=== PATIENT | male | born 1965 ===

== ENCOUNTER 2016-05-14 20:32 | Observation (INO) | payer OTHER, SELFPAY ==
[2016-05-14 20:33] VITALS: BMI 20.6
--- NOTE | 2016-05-14 21:47 | ED PDOC ---
HPI: Chest Pain Time Seen by Provider: 05/14/16 20:40 Chief Complaint (Nursing): Chest Pain Chief Complaint (Provider): Back/Chest Pain History Per: Patient, Family () History/Exam Limitations: no limitations Onset/Duration Of Symptoms: Days (today) Current Symptoms Are (Timing): Better Severity: Mild (in ED) Quality: Sharp, Tightness Associated Symptoms: Dyspnea, Diaphoresis, Syncope (near), Other (dizziness) Additional Complaint(s): Paul Hernandez is a 50 year old male, with a past medical history inclusive of a dilated aorta and mild aortic aneurysm (diagnosed last year during previous ED evaluation, admitted to hospital), who presents to the ED on 05/14/16, accompanied by his , for the evaluation of feelings of moderate chest pain that he has felt x2 hours, improved since onset. Pain, initially described as sharp but now more of a tightness, had reportedly originated within his back while he had been laying down and is now radiating anteriorly into his chest. Associated diaphoresis and acute shortness of breath also reported, to the point where the patient nearly syncopized; prompting ED visit. Denies fever, chills or leg swelling and states that shortness of breath has since resolved. Patient reports having experienced a similar painful episode while he was at work this morning, described as similar to a muscle spasm. Though pain had eventually resolved on its own, patient does report having experienced persistent feelings of fatigue and some mild shortness of breath that had been mildly alleviated by a hot shower. PMD: [facility] Past Medical History Reviewed: Historical Data, Nursing Documentation, Vital Signs Vital Signs: Last Vital Signs Temp 98.4 F 05/15/16 01:06 Pulse 87 05/15/16 04:45 Resp 14 05/15/16 01:06 BP 133/88 05/15/16 01:06 Pulse Ox 100 05/15/16 04:45 - Medical History PMH: Asthma, Cardiac Aneurysm Denies: HIV, Chronic Kidney Disease - Surgical History Surgical History: Hernia Repair - Family History Family History: States: Hypertension (mother) - Living Arrangements Living Arrangements: With Family - Social History Current smoker - smoking cessation education provided: No Alcohol: None Drugs: Denies - Immunization History Hx Tetanus Toxoid Vaccination: No - Home Medications Home Medications: Ambulatory Orders Medication Instructions Recorded Albuterol HFA [Ventolin HFA 90 1 - 2 puff IH Q4 PRN #1 inhaler 11/20/15 mcg/actuation (8 g)] - Allergies Allergies/Adverse Reactions: Allergies Allergy/AdvReac Type Severity Reaction Status Date / Time No Known Allergies Allergy Verified 05/14/16 20:53 Review of Systems ROS Statement: Except As Marked, All Systems Reviewed And Found Negative Constitutional: Positive for: Sweats, Weakness (fatigue). Negative for: Fever, Chills Cardiovascular: Positive for: Chest Pain, Light Headedness (near syncope). Negative for: Edema Respiratory: Positive for: Shortness of Breath Musculoskeletal: Positive for: Back Pain. Negative for: Leg Pain Physical Exam - Reviewed Nursing Documentation Reviewed: Yes Vital Signs Reviewed: Yes - Physical Exam Appears: Positive for: Non-toxic, Uncomfortable (mild) Head Exam: Positive for: ATRAUMATIC, NORMOCEPHALIC Skin: Positive for: Normal Color, Warm, Dry Eye Exam: Positive for: Normal appearance, PERRL Neck: Positive for: Normal, Painless ROM, Supple Cardiovascular/Chest: Positive for: Regular Rate, Rhythm. Negative for: Edema, Murmur Respiratory: Positive for: Normal Breath Sounds. Negative for: Accessory Muscle Use, Respiratory Distress Gastrointestinal/Abdominal: Positive for: Normal Exam, Soft. Negative for: Tenderness Extremity: Positive for: Normal ROM Neurologic/Psych: Positive for: Alert, Oriented - Laboratory Results Result Diagrams: 05/14/16 22:34 05/14/16 22:34 - ECG ECG: Positive for: Interpreted By Me, Viewed By Me ECG Rhythm: Positive for: Sinus Rhythm. Negative for: ST/T Changes Rate: 87 O2 Sat by Pulse Oximetry: 100 (RA) Pulse Ox Interpretation: Normal Medical Decision Making Medical Decision Makin:14 Initial Impression: chest pain, back pain Previous Records Reviewed: 12/28/15 CT Report FINDINGS: PULMONARY ARTERIES: Unremarkable. No pulmonary embolism. AORTA: There is mild aneurysmal changes of the aortic root measures up to 3.8 centimeter in the largest transverse diameter. The ascending thoracic aorta is slightly ectatic. The aortic arch and descending thoracic aorta are normal in caliber. LUNGS: Scattered nodular opacities bowel seen in the right lung more prominent at the right middle lobe and lower portion of right upper lobe of uncertain etiology may be related to infectious process. Mild central bronchiectasis seen also more prominent on the right lung. PLEURAL SPACES: Unremarkable. No effusion or pneuomothorax. HEART: The heart is upper normal/ mildly enlarged. No evidence of pericardial effusion. LYMPH NODES: No lymphadenopathy. BONES, CHEST WALL: Unremarkable. No fracture or destructive lesion OTHER FINDINGS: Unremarkable. IMPRESSION: Mild aneurysmal dilatation of the aortic root measures up to 3.8 centimeter in the transverse diameter. Mildly ectatic ascending thoracic aorta. The aortic arch and descending thoracic aorta are normal in caliber. No evidence of pulmonary embolus. Scattered small nodular opacities in the lungs more on the right suspicious for infectious process or sequela of recent infection/inflammatory process. Mild central right bronchiectasis. Initial Plan: * EKG * CT Angio Chest Disection Protocol * Labs * Troponin I * Reevaluation EKG shows NSR at 87bpm with no ST elevations. 0015: CT angio chest impression: Within limits of the presently available software, it is favored that the thoracic aorta dimensions are stable. Direct comparison with double oblique imaging is recommended on site, that cannot be performed at the present time. No evidence of thoracic aortic dissection. No evidence to suggest intramural hematoma. No evidence of hemorrhage or other finding to suggest acute aortic pathology. Coronary artery disease. Lung findings as detailed above, followup is advised for nodules noting that at least one nodule does appear new, per Fleischner Society guidelines for follow-up and management of pulmonary nodules: Recommend initial follow-up chest CT at 3, 9 and 24 months. Consider contrast enhanced chest CT, PET scan and/or biopsy as clinically warranted. Clarification re stability is recommended, older studies are not available at this time. Pulmonary arteries as above , no pulmonary embolus within limits of the study. Large amount of air in the esophagus, clinical correlation for esophageal contribution to symptoms. CT A/P impression: No evidence of abdominal aortic aneurysm, patient mesenteric and bilateral renal arteries. Findings of prostatic enlargement, 2.2cm cystic finding adjacent to the left kidney as above noting that this is not a simple cyst, clarification of the nature of this finding is recommended. 0022: Troponin negative. Patient will be admitted to family practice resident on -call for chest pain. pt agreeable to plan. pt will need prostate workup. Scribe Attestation: Documented by Sera Cevallos and Seamus Shin acting as scribes for Pepe Jesus MD. Provider Scribe Attestation: All medical record entries made by the Scribe were at my direction and personally dictated by me. I have reviewed the chart and agree that the record accurately reflects my personal performance of the history, physical exam, medical decision making, and the department course for this patient. I have also personally directed, reviewed, and agree with the discharge instructions and disposition. Disposition - Clinical Impression Clinical Impression: Chest pain - Patient ED Disposition Is Patient to be Admitted: Yes Counseled Patient/Family Regarding: Studies Performed, Diagnosis - Disposition Disposition Time: 00:00 Condition: STABLE
[2016-05-14 22:37] LABS: BASO % 0.4 % (0.0-2.0); EOS # 0.1 K/uL (0.0-0.7); EOS % 0.6 % (0.0-4.0); HEMATOCRIT 41.1 % (35.0-51.0); LYMPH # 1.4 K/uL (1.0-4.3); MEAN CELL VOLUME 83.5 fl (80.0-94.0); MEAN CORPUSCULAR HGB CONC 32.3 g/dL (33.0-37.0); MEAN PLATELET VOLUME 8.7 fl (7.2-11.7); MONO % 8.9 % (0.0-10.0); NEUT # 8.8 K/uL (1.8-7.0); NEUT % 78.1 % (50.0-75.0); RED CELL DISTRIBUTION WIDTH 13.2 % (11.5-14.5); WHITE BLOOD COUNT 11.3 K/uL (4.8-10.8)
[2016-05-14 22:46] LABS: ALB/GLOB RATIO 1.2 (1.0-2.1); ALKALINE PHOSPHATASE 80 U/L (38-126); ALT/SGPT 42 U/L (21-72); AST/SGOT 36 U/L (17-59); BILIRUBIN,TOTAL 0.4 mg/dl (0.2-1.3); BLOOD UREA NITROGEN 14 mg/dl (9-20); CALCIUM 9.2 mg/dL (8.4-10.2); CARBON DIOXIDE 27 mmol/L (22-30); CHLORIDE 100 mmol/L (98-107); GFR AFRICAN-AMERICAN > 60; GLUCOSE,RANDOM 111 mg/dL (75-110); POTASSIUM 3.6 MMOL/L (3.6-5.0); SODIUM 142 mmol/l (132-148); TOTAL PROTEIN 7.4 G/DL (6.3-8.2)
[2016-05-14] MEDS ORDERED: Iodixanol 320 MG/ML 100 ML BOTTLE IV ONE (22:48)
[2016-05-14] MEDS ORDERED: Sodium Chloride 0.9% 50 ML IV ONE (22:49)
--- NOTE | 2016-05-15 00:15 | CT ---
EXAM: CT Angiography Chest Without and With Intravenous Contrast. CLINICAL HISTORY: 50 years old, male; Pain; Other: Chest pain, tightness, SOB; Other: SOB, tightness; Additional info: Chest pain, hsitory of aortic aneurism. RO dissect. Sent e. D. Physician documentation with request TECHNIQUE: Axial computed tomographic angiography images of the chest without and with intravenous contrast using pulmonary embolism protocol. This CT exam was performed using one or more of the following dose reduction techniques: automated exposure control, adjustment of the mA and/or kV according to patient size, and/or use of iterative reconstruction technique. MIP reconstructed images were created and reviewed. Coronal and sagittal reformatted images were created and reviewed. CONTRAST: 90 mL of [id number] administered intravenously. COMPARISON: No relevant prior studies available. FINDINGS:There is comparison to previous CT angiogram of the chest dated December 28, 2015. Pulmonary arteries: Pulmonary arteries.No evidence of an acute pulmonary embolus to the level of the most proximal aspect of the segmental pulmonary arteries. One or more very small segmental or subsegmental pulmonary emboli cannot be excluded. Aorta: There is no evidence of thoracic aortic dissection.A noncontrast examination shows no evidence to suggest acute intramural hematoma. The dimensions of the thoracic aorta at the sinuses of Valsalva are approximately 4.4 cm noting that measured similarly to the previous study this is within measurement error. Please note that double oblique imaging is strongly recommended, however it is not possible to compare both studies in double oblique at the present time related to software constraints. This should be performed on-site. Within limits of what is currently available it is favored that the measurements of the aorta are stable compared to prior of December 2015. The great vessels of the arch are patent, proximal vertebral arteries are patent. Lungs: Lungs. There are are multiple small irregular shaped opacities in the right middle lobe, mild associated bronchiectasis, these are similar to the study of approximately 4 months previous however noting in particular a new or nodule right middle lobe series 6 image 55, 6.2 mm, for which followup is recommended see below. A tubular nodular opacity right middle lobe series 6 image 50 is favored to correspond to previous study series 3 image 55 bronchiectasis and is favored to represent mucous plugging.Additional scattered very small sub-pleural nodules are also seen in the right middle lobe. At the left lung base, there is stable demonstration of a subpleural 9 mm nodule series 6 image 54 in comparison to series 3 image 61 of the previous examination. There is redemonstration of nodularity and bronchiectasis in the lingula series 6 image 17 9, which again is not fully characterized on the present study, possibly postinfectious, but for which followup is recommended if longer term stability cannot be confirmed. Pleural space: There is no pleural effusion. There is no evidence of pneumothorax. Heart: Calcifications in keeping with coronary artery disease are better appreciated on the noncontrast images. No significant pericardial effusion. No evidence of RV dysfunction. Mediastinum: Air in the esophagus suggesting reflux. Thyroid: Thyroid appears without focal lesion. Bones/joints: Bony structures no evidence of acute fractures. No dislocation. Soft tissues: There is trace gynecomastia. Lymph nodes: Small pretracheal precarinal nodes, subcarinal nodes, due to be size criteria for pathologic enlargement. Tubes, lines and devices: Other findings: Noncontrast imaging and contrast enhanced imaging of the chest with multiplanar reconstructions are available. IMPRESSION: Within limits of the presently available software, it is favored that the thoracic aorta dimensions are stable. Direct comparison with double oblique imaging is recommended on site, that cannot be performed at the present time. No evidence of thoracic aortic dissection. No evidence to suggest intramural hematoma. No evidence of hemorrhage or other finding to suggest acute aortic pathology. Coronary artery disease. Lung findings as detailed above, followup is advised for nodules noting that at least one nodule does appear new, per Fleischner Society guidelines for follow-up and management of pulmonary nodules: Recommend initial follow-up chest CT at 3, 9 and 24 months. Consider contrast enhanced chest CT, PET scan and/or biopsy as clinically warranted. Clarification re stability is recommended, older studies are not available at this time. Pulmonary arteries as above , no pulmonary embolus within limits of the study. Large amount of air in the esophagus, clinical correlation for esophageal contribution to symptoms. EXAM: CT Abdomen and Pelvis With Intravenous Contrast. CLINICAL HISTORY: 50 years old, male; Pain; Other: Chest pain, tightness, SOB; Other: SOB, tightness; Additional info: Chest pain, hsitory of aortic aneurism. RO dissect. Sent e. D. Physician documentation with request TECHNIQUE: Axial computed tomography images of the abdomen and pelvis with intravenous contrast. This CT exam was performed using one or more of the following dose reduction techniques: automated exposure control, adjustment of the mA and/or kV according to patient size, and/or use of iterative reconstruction technique. MIP reconstructed images were created and reviewed. Coronal and sagittal reformatted images were created and reviewed. CONTRAST: 90 mL of [id number] administered intravenously. EXAM DATE/TIME: Exam ordered 05/14/2016 9:43 PM COMPARISON: CT - ANGIO CHEST PE PROTOCOL 12/28/2015 9:32:09 AM FINDINGS: Lower thorax: see above ABDOMEN: Liver: Hepatic steatosis. Gallbladder and bile ducts: Gallbladder is collapsed. No calcified stones. No ductal dilation. Pancreas: Unremarkable. No mass. No ductal dilation. Spleen: Unremarkable. No splenomegaly. Adrenals: Small right adrenal nodule, approximately 7 mm, favored to be stable from December 2015. Kidneys and ureters: Adjacent to the left kidney, series 6 image 133, there is a 22 mm finding measuring 29 Hounsfield units, similar in size to the previous CT as seen series 4 image 276 in December 2015. Organ of origin and clinical significance of this finding are not clear on the present study, this is not definitely of renal parenchymal origin. Nephrograms are symmetric, there is no hydronephrosis. No ureteral stones are seen noting that punctate stones or noncalcified stones may not be well seen on CT. Stomach and bowel: No evidence of abdominal wall hernias containing bowel. There are no findings to suggest bowel obstruction. No evidence to suggest acute diverticulitis. In those areas where the wall can be evaluated there is no finding to suggest bowel wall thickening. Appendix: The appendix is well-seen and is normal. PELVIS: Bladder: Bladder is collapsed limiting evaluation. Reproductive: Enlarged prostate, 4.3 cm. Laboratory correlation advised as the next step. ABDOMEN and PELVIS: Intraperitoneal space: No free air. No significant fluid collection. Bones/joints: Bony structures of the abdomen and pelvis. No evidence of acute fractures in the abdomen and pelvis. Mild loss of disc height L5-S1. No dislocation. Soft tissues: See above.Adjacent to the left kidney, series 6 image 133, there is a 22 mm finding measuring 29 Hounsfield units, similar in size to the previous CT as seen series 4 image 276 in December 2015. Organ of origin and clinical significance of this finding are not clear on the present study, this is not definitely of renal parenchymal origin. Vasculature: There is no abdominal aortic aneurysm. The mesenteric vessels appear perfused. 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 The portal venous system is not well evaluated related to phase of contrast-enhancement. Lymph nodes: Upper normal portacaval node. There are small left para-aortic nodes in the pelvis, these do not meet size criteria for pathologic enlargement. Small bilateral external iliac nodes which do not meet size criteria for pathologic enlargement. IMPRESSION: No evidence of abdominal aortic aneurysm, patient mesenteric and bilateral renal arteries. Findings of prostatic enlargement, 2.2cm cystic finding adjacent to the left kidney as above noting that this is not a simple cyst, clarification of the nature of this finding is recommended.
--- NOTE | 2016-05-15 00:34 | CP.PCM.HP ---
History of Present Illness - History of Present Illness History of Present Illness: 50 yo M w/ PMHx of thoracic aorta dilation (4.4cm) presented to ED with episode of chest pain associated with dyspnea while laying down after dinner. Patient states he has had similar pains in the past, though has not had one in a while. Patient does not feel like it is a "reflux" type pain. Patient states the pain was substernal pushing out like pain that is non-reproducible. Patient does not follow with a reconciliation specialist at this time. No other complaints at this time. Patient states no changes recently to diet or exercise. Does not take any medications. Denies palpitations, headache, change of vision, back pain, metallic taste, abdominal pain, nausea, vomiting, diarrhea, constipation, or recent illness. Patient does state dribbling when he urinates that has been an issue for a while. Patient states chest pain and SOB has resolved at this time. PMD: [facility] PMHx: thoracic aorta dilation Meds: None Allergies: NKDA Surgeries: Bilateral inguinal hernia repairs (1992,2011) Family hx: notable for mother with CAD/HTN Social hx: Denies etoh, tobacco, or drug use. 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 Lab remarkable for mild leukocytosis, troponin neg EKG NSR, no acute changes CT angiography obtained to r/o dissection Present on Admission - Present on Admission Any Indicators Present on Admission: No Review of Systems - Review of Systems All systems: reviewed and no additional remarkable complaints except (mentioned in HPI) Past Patient History - Past Social History Alcohol: None Drugs: Denies - CARDIAC Hx Cardiac Disorders: No - PULMONARY Hx Asthma: Yes - NEUROLOGICAL Hx Neurological Disorder: Yes Hx Syncope: Yes - HEENT Hx HEENT Problems: No - RENAL Hx Chronic Kidney Disease: No - ENDOCRINE/METABOLIC Hx Endocrine Disorders: No - HEMATOLOGICAL/ONCOLOGICAL Hx Human Immunodeficiency Virus (HIV): No - INTEGUMENTARY Hx Dermatological Problems: No - MUSCULOSKELETAL/RHEUMATOLOGICAL Hx Falls: No - GASTROINTESTINAL Hx Gastrointestinal Disorders: Yes Hx Colitis: Yes - GENITOURINARY/GYNECOLOGICAL Hx Genitourinary Disorders: No - PSYCHIATRIC Hx Psychophysiologic Disorder: No Hx Substance Use: No - SURGICAL HISTORY Hx Surgeries: Yes Hx Herniorrhaphy: Yes (left side) - ANESTHESIA Hx Anesthesia: Yes Hx Anesthesia Reactions: Yes (low bp) Meds Allergies/Adverse Reactions: Allergies Allergy/AdvReac Type Severity Reaction Status Date / Time No Known Allergies Allergy Verified 05/14/16 20:53 Physical Exam - Constitutional Appears: Well, Non-toxic, No Acute Distress - Head Exam Head Exam: ATRAUMATIC, NORMAL INSPECTION, NORMOCEPHALIC - Eye Exam Eye Exam: EOMI, Normal appearance - Neck Exam Neck exam: Positive for: Normal Inspection - Respiratory Exam Respiratory Exam: Clear to Auscultation Bilateral, NORMAL BREATHING PATTERN. absent: Decreased Breath Sounds, Rhonchi, Wheezes - Cardiovascular Exam Cardiovascular Exam: REGULAR RHYTHM, RRR, +S1, +S2 Additional comments: no tenderness to palpation. - GI/Abdominal Exam GI & Abdominal Exam: Normal Bowel Sounds, Soft. absent: Distended, Firm, Guarding, Tenderness - Extremities Exam Extremities exam: Positive for: normal inspection. Negative for: calf tenderness, pedal edema - Back Exam Back exam: NORMAL INSPECTION - Neurological Exam Neurological exam: Alert, Oriented x3 - Psychiatric Exam Psychiatric exam: Normal Affect, Normal Mood - Skin Skin Exam: Dry, Intact, Normal Color, Warm Results - Vital Signs Recent Vital Signs: Last Vital Signs Temp 98.6 F 05/14/16 20:53 Pulse 87 05/15/16 00:24 Resp 16 05/14/16 20:53 BP 128/75 05/14/16 20:53 Pulse Ox 100 05/15/16 00:24 - Labs Result Diagrams: 05/14/16 22:34 05/14/16 22:34 Assessment & Plan (1) Chest pain Status: Acute (2) Enlarged prostate Status: Acute (3) Aortic dilatation Status: Chronic (4) Cyst of left kidney Status: Chronic (5) Lung nodules Status: Chronic (6) DVT prophylaxis Status: Acute - Assessment and Plan (Free Text) Assessment: 50 yo M w/ PMHx of thoracic aorta dilation (4.4cm) with episode of chest pain associated with dyspnea. CT angio completed, see report for full details. Plan: (1) Chest pain - CT Findings * Consistent with Coronary artery disease. * Pulmonary arteries as above , no pulmonary embolus within limits of the study. * Large amount of air in the esophagus, clinical correlation for esophageal contribution to symptoms. * No evidence of abdominal aortic aneurysm, patient mesenteric and bilateral renal arteries. - Likely due to GERD though will rule out ACS - Trop x 1 neg - EKG unremarkable - Obtain serial troponins - Heart healthy diet - Follow up labs/imaging - Continuous cardiac monitoring (2) Enlarged prostate - CT Findings * Findings of prostatic enlargement 4.3cm - Previously seen by Dr. Palacios approx 5 yrs ago though no intervention - Symptomatic with dribbling - PSA ordered (3) Aortic dilatation - Stable - CT Findings * Within limits of the presently available software, it is favored that the thoracic aorta dimensions are stable. * Direct comparison with double oblique imaging is recommended on site, that cannot be performed at the present time. * No evidence of thoracic aortic dissection. No evidence to suggest intramural hematoma. No evidence of hemorrhage or other finding to suggest acute aortic pathology. - Echo ordered (4) Cyst of left kidney - CT Findings * Adjacent to the left kidney, there is a 22 mm finding measuring 29 Hounsfield units, similar in size to the previous CT in December 2015. * Organ of origin and clinical significance of this finding are not clear on the present study, this is not definitely of renal parenchymal origin. * 2.2cm cystic finding adjacent to the left kidney as above noting that this is not a simple cyst, clarification of the nature of this finding is recommended. (5) Lung nodules - CT Findings * Lung findings as detailed above, followup is advised for nodules noting that at least one nodule does appear new, per Fleischner Society guidelines for follow-up and management of pulmonary nodules: Recommend initial follow-up chest CT at 3, 9 and 24 months. Consider contrast enhanced chest CT, PET scan and/or biopsy as clinically warranted. Clarification re stability is recommended , older studies are not available at this time. (6) DVT prophylaxis - OOB/SCDs prn
[2016-05-15 05:08] VITALS: RESP 20
[2016-05-15 07:42] LABS: BLOOD UREA NITROGEN 14 mg/dl (9-20); CALCIUM 9.3 mg/dL (8.4-10.2); CARBON DIOXIDE 27 mmol/L (22-30); CHLORIDE 103 mmol/L (98-107); CHOLESTEROL 164 mg/dL (0-199); GFR AFRICAN-AMERICAN > 60; GLUCOSE,RANDOM 92 mg/dL (75-110); POTASSIUM 3.8 MMOL/L (3.6-5.0); PROSTATE SPECIFIC ANTIGEN 1.59 ng/ML (0.00-4.0); SODIUM 144 mmol/l (132-148); THYROID STIMULATING HORMONE 6.93 mIU/ML (0.46-4.68)
[2016-05-15 08:03] VITALS: BP 108/75; PULSE 82; TEMP 97.7; O2SAT 99
[2016-05-15 08:35] LABS: BASO % 0.3 % (0.0-2.0); EOS # 0.1 K/uL (0.0-0.7); EOS % 1.3 % (0.0-4.0); HEMATOCRIT 40.6 % (35.0-51.0); LYMPH % 18.5 % (20.0-40.0); MEAN CELL VOLUME 83.3 fl (80.0-94.0); MEAN CORPUSCULAR HEMOGLOBIN 27.1 pg (27.0-31.0); MEAN CORPUSCULAR HGB CONC 32.6 g/dL (33.0-37.0); MEAN PLATELET VOLUME 8.7 fl (7.2-11.7); MONO # 1.1 K/uL (0.0-0.8); MONO % 9.6 % (0.0-10.0); NEUT # 7.7 K/uL (1.8-7.0); NEUT % 70.3 % (50.0-75.0); RED CELL DISTRIBUTION WIDTH 13.5 % (11.5-14.5)
[2016-05-15 10:33] LABS: T4 8.29 ug/dl (5.5-11.0)
--- NOTE | 2016-05-15 11:24 | CARD ---
APPROVED REPORT EXAM: Two-dimensional and M-mode echocardiogram with Doppler and color Doppler. Other Information Quality : GoodRhythm : NSR INDICATION Chest Pain Aortic Enlargement 2D DIMENSIONS IVSd0.81 (0.7-1.1cm)LVDd4.44 (3.9-5.9cm) LVOT Diameter2.06 (1.8-2.4cm)PWd0.91 (0.7-1.1cm) IVSs1.14 (0.8-1.2cm)LVDs2.88 (2.5-4.0cm) FS (%) 35.3 %PWs1.32 (0.8-1.2cm) M-Mode DIMENSIONS Left Atrium (MM)2.03 (2.5-4.0cm)IVSd0.91 (0.7-1.1cm) Aortic Root4.21 (2.2-3.7cm)LVDd4.91 (4.0-5.6cm) Aortic Cusp Exc.2.26 (1.5-2.0cm)PWd0.88 (0.7-1.1cm) IVSs1.79 cmFS (%) 53 % LVDs2.29 (2.0-3.8cm)PWs1.35 cm Mitral Valve MV E Iyirsmiw95.5cm/sMV DECEL [id number] A Quthuala53.5cm/s MV MEK69oiI/A ratio1.3MVA (PHT)2.60cm2 TDI E/Lateral E'0.0E/Medial E'0.0 LEFT VENTRICLE The left ventricle is normal size. There is normal left ventricular wall thickness. The left ventricular function is normal. The left ventricular ejection fraction is within the normal range. The Ejection Fraction is 55-60%. There is normal LV segmental wall motion. The left ventricular diastolic function is normal. No left ventricle thrombus noted on this study. There is no mass noted in the left ventricle. RIGHT VENTRICLE The right ventricle is normal size. There is normal right ventricular wall thickness. The right ventricular systolic function is normal. ATRIA The left atrium size is normal. The right atrium size is normal. The interatrial septum is intact with no evidence for an atrial septal defect. AORTIC VALVE The aortic valve is normal in structure and function. No aortic regurgitation is present. There is no aortic valvular stenosis. There is no aortic valvular vegetation. MITRAL VALVE The mitral valve is normal in structure and function. There is no evidence of mitral valve prolapse. There is no mitral valve stenosis. There is no mitral valve regurgitation noted. TRICUSPID VALVE The tricuspid valve is normal in structure and function. There is no tricuspid valve regurgitation noted. There is no tricuspid valve prolapse or vegetation. There is no tricuspid valve stenosis. PULMONIC VALVE The pulmonary valve is normal in structure and function. There is no pulmonic valvular regurgitation. There is no pulmonic valvular stenosis. GREAT VESSELS The aortic root is mildly enlarged. There is mild aortic root dilatation. 4.21 cm The IVC is normal in size and collapses >50% with inspiration. PERICARDIAL EFFUSION The pericardium appears normal. There is no pleural effusion. <Conclusion> The left ventricle is normal size. The left ventricular function is normal. The left ventricular ejection fraction is within the normal range. The Ejection Fraction is 55-60%. The aortic root is mildly enlarged. There is mild aortic root dilatation. 4.21 cm
--- NOTE | 2016-05-15 11:41 | CARD ---
APPROVED REPORT EKG Measurement Heart [id number] <Conclusion> Normal sinus rhythm Nonspecific ST abnormality Abnormal ECG
--- NOTE | 2016-05-15 17:41 | CP.PCM.DIS ---
Provider - Provider Date of Admission: 05/15/16 00:20 Attending physician: Beverly Eduardo MD Time Spent in preparation of Discharge (in minutes): 30 Diagnosis - Discharge Diagnosis (1) Chest pain Status: Acute (2) Aortic dilatation Status: Chronic Hospital Course - Lab Results Lab Results: Most Recent Lab Values WBC 11.0 K/uL (4.8-10.8) H 05/15/16 07:00 RBC 4.88 Mil/uL (4.40-5.90) 05/15/16 07:00 Hgb 13.2 g/dL (12.0-18.0) 05/15/16 07:00 Hct 40.6 % (35.0-51.0) 05/15/16 07:00 MCV 83.3 fl (80.0-94.0) 05/15/16 07:00 MCH 27.1 pg (27.0-31.0) 05/15/16 07:00 MCHC 32.6 g/dL (33.0-37.0) L 05/15/16 07:00 RDW 13.5 % (11.5-14.5) 05/15/16 07:00 Plt Count 200 K/uL (130-400) 05/15/16 07:00 MPV 8.7 fl (7.2-11.7) 05/15/16 07:00 Neut % (Auto) 70.3 % (50.0-75.0) 05/15/16 07:00 Lymph % (Auto) 18.5 % (20.0-40.0) L 05/15/16 07:00 [place] % (Auto) 9.6 % (0.0-10.0) 05/15/16 07:00 Eos % (Auto) 1.3 % (0.0-4.0) 05/15/16 07:00 Baso % (Auto) 0.3 % (0.0-2.0) 05/15/16 07:00 Neut # 7.7 K/uL (1.8-7.0) H 05/15/16 07:00 Lymph # 2.0 K/uL (1.0-4.3) 05/15/16 07:00 [place] # 1.1 K/uL (0.0-0.8) H 05/15/16 07:00 Eos # 0.1 K/uL (0.0-0.7) 05/15/16 07:00 Baso # 0.0 K/uL (0.0-0.2) 05/15/16 07:00 Sodium 144 mmol/l (132-148) 05/15/16 06:48 Potassium 3.8 MMOL/L (3.6-5.0) 05/15/16 06:48 Chloride 103 mmol/L (98-107) 05/15/16 06:48 Carbon Dioxide 27 mmol/L (22-30) 05/15/16 06:48 Anion Gap 18 (10-20) 05/15/16 06:48 BUN 14 mg/dl (9-20) 05/15/16 06:48 Creatinine 0.9 mg/dL (0.8-1.5) 05/15/16 06:48 Est GFR ( Amer) > 60 05/15/16 06:48 Est GFR (Non-Af Amer) > 60 05/15/16 06:48 Random Glucose 92 mg/dL (75-110) 05/15/16 06:48 Calcium 9.3 mg/dL (8.4-10.2) 05/15/16 06:48 Total Bilirubin 0.4 mg/dl (0.2-1.3) 05/14/16 22:34 AST 36 U/L (17-59) 05/14/16 22:34 ALT 42 U/L (21-72) 05/14/16 22:34 Alkaline Phosphatase 80 U/L (38-126) 05/14/16 22:34 Troponin I < 0.0120 ng/mL (0.00-0.120) 05/15/16 06:30 Total Protein 7.4 G/DL (6.3-8.2) 05/14/16 22:34 Albumin 4.1 g/dL (3.5-5.0) 05/14/16 22:34 Globulin 3.3 gm/dL (2.2-3.9) 05/14/16 22:34 Albumin/Globulin Ratio 1.2 (1.0-2.1) 05/14/16 22:34 Triglycerides 85 mg/DL (0-149) D 05/15/16 06:48 Cholesterol 164 mg/dL (0-199) 05/15/16 06:48 LDL Cholesterol Direct 106 mg/dL (0-129) 05/15/16 06:48 HDL Cholesterol 42 MG/DL (30-70) 05/15/16 06:48 Prostate Specific Ag 1.59 ng/ML (0.00-4.0) 05/15/16 06:48 Thyroxine (T4) 8.29 ug/dl (5.5-11.0) 05/15/16 06:30 Total T3 1.42 nmol/L (1.49-2.60) L 05/15/16 06:30 TSH 3rd Generation 6.93 mIU/ML (0.46-4.68) H 05/15/16 06:48 - Hospital Course Hospital Course: 50 YO M presented to the ED for chest pain. PT was thoroughly worked up. - Troponin x 2 negative. - EKG: No changes from baseline - CT chest angiography :- CT Findings * Within limits of the presently available software, it is favored that the thoracic aorta dimensions are stable. * Direct comparison with double oblique imaging is recommended on site, that cannot be performed at the present time. * No evidence of thoracic aortic dissection. No evidence to suggest intramural hematoma. No evidence of hemorrhage or other finding to suggest acute aortic pathology. - CT of kidney: - CT Findings * Adjacent to the left kidney, there is a 22 mm finding measuring 29 Hounsfield units, similar in size to the previous CT in December 2015. * Organ of origin and clinical significance of this finding are not clear on the present study, this is not definitely of renal parenchymal origin. * 2.2cm cystic finding adjacent to the left kidney as above noting that this is not a simple cyst, clarification of the nature of this finding is recommended. CT Lung: - CT Findings * Lung findings as detailed above, followup is advised for nodules noting that at least one nodule does appear new, per Fleischner Society guidelines for follow-up and management of pulmonary nodules: Recommend initial follow-up chest CT at 3, 9 and 24 months. Consider contrast enhanced chest CT, PET scan and/or biopsy as clinically warranted. Clarification re stability is recommended , older studies are not available at this time. - PT states the chest pain has decreased. Currently does not have any SOB, chest pain, dizziness, N/V/D. Ambulatory Order: Albuterol Discharge Exam - Head Exam Head Exam: ATRAUMATIC, NORMOCEPHALIC - Eye Exam Eye Exam: Normal appearance - Respiratory Exam Respiratory Exam: Clear to PA & Lateral, NORMAL BREATHING PATTERN - Cardiovascular Exam Cardiovascular Exam: REGULAR RHYTHM, +S1, +S2 - GI/Abdominal Exam GI & Abdominal Exam: Normal Bowel Sounds. absent: Tenderness Discharge Plan - Follow Up Plan Condition: STABLE Disposition: HOME/ ROUTINE Additional Instructions: Follow up with Dr. Blanco 05/30/16 @3:20. Return to ER if recurrence or worsening of symptoms with shortness of breath and sweating with chest pain. May continue to follow Dr. Fried if schedule permits. ECHO/ CT Scan follow up as well as Thyroid tests to be followed up as discussed. Ambulatory medication: - Albuterol
== END 2016-05-15 11:22 | disposition home or self-care (01) ==
LOC: H.ER 20:32 → H.ERHOLD 05-15 00:20
PROVIDERS: ADMIT Family Medicine Geriatric Medicine; ATTEND Family Medicine Geriatric Medicine
DX: R07.89 Other chest pain (principal); J45.909 Unspecified asthma, uncomplicated; N40.0 Benign prostatic hyperplasia without lower urinary tract symptoms; N28.1 Cyst of kidney, acquired; R91.8 Other nonspecific abnormal finding of lung field; I77.810 Thoracic aortic ectasia

== ENCOUNTER 2016-06-04 19:15 | Observation (INO) | payer OTHER, SELFPAY ==
[2016-06-04 19:15] VITALS: BMI 20.6
[2016-06-04 21:16] LABS: BASO # 0.1 K/uL (0.0-0.2); BASO % 1.2 % (0.0-2.0); EOS % 0.2 % (0.0-4.0); HEMATOCRIT 39.8 % (35.0-51.0); LYMPH # 1.1 K/uL (1.0-4.3); LYMPH % 8.8 % (20.0-40.0); MEAN CELL VOLUME 83.6 fl (80.0-94.0); MEAN CORPUSCULAR HEMOGLOBIN 27.5 pg (27.0-31.0); MEAN CORPUSCULAR HGB CONC 32.9 g/dL (33.0-37.0); MONO # 0.7 K/uL (0.0-0.8); MONO % 5.7 % (0.0-10.0); NEUT # 10.7 K/uL (1.8-7.0); NEUT % 84.1 % (50.0-75.0); PLATELET COUNT 202 K/uL (130-400); RED CELL DISTRIBUTION WIDTH 13.4 % (11.5-14.5); WHITE BLOOD COUNT 12.7 K/uL (4.8-10.8)
[2016-06-04 21:19] LABS: RBC URINE < 1 /hpf (0-3); URINE BILIRUBIN NEGATIVE (NEGATIVE); URINE BLOOD NEGATIVE (NEGATIVE); URINE COLOR STRAW (YELLOW); URINE GLUCOSE (UA) NEG (Normal); URINE KETONE NEGATIVE (NEGATIVE); URINE LEUKOCYTE ESTERASE NEG Leu/uL (Negative); URINE PROTEIN NEGATIVE (NEGATIVE); URINE UROBILINOGEN 0.2-1.0 mg/dL (0.2-1.0); WBC URINE < 1 /hpf (0-5)
--- NOTE | 2016-06-04 21:34 | ED PDOC ---
HPI: SOB/CHF/COPD Time Seen by Provider: 06/04/16 19:46 Chief Complaint (Nursing): Shortness Of Breath Chief Complaint (Provider): Near Syncope History Per: Patient History/Exam Limitations: no limitations Onset/Duration Of Symptoms: Hrs (x2) Current Symptoms Are (Timing): Better Additional Complaint(s): Paul Hernandez is a 50 year old male, with a past medical history inclusive of previous cardiac aneurysm, vertigo and previous syncope, who presents to the ED on 06/04/16 for evaluation s/p episode of near syncope that he had experienced while driving today; characterized by dizziness, vomiting and acute dyspnea that had lasted for approximately 2 hours. Patient reports feeling better upon initial ED evaluation, stating that he has experienced similar symptom presentation in the past, though he notes the absence of chest pain or nausea during the episode today. Further denies fever, headache or vision changes. PMD: Shavonne Blanco Past Medical History Reviewed: Historical Data, Nursing Documentation, Vital Signs Vital Signs: Last Vital Signs Temp 97.8 F 06/05/16 13:07 Pulse 72 06/05/16 13:07 Resp 20 06/05/16 13:07 BP 128/79 06/05/16 13:07 Pulse Ox 97 06/05/16 13:07 - Medical History PMH: Asthma, Cardiac Aneurysm Denies: HIV, Chronic Kidney Disease Other PMH: vertigo, syncope - Surgical History Surgical History: Hernia Repair (left-sided) - Family History Family History: States: Hypertension (mother) - Immunization History Hx Tetanus Toxoid Vaccination: No - Home Medications Home Medications: Ambulatory Orders Medication Instructions Recorded No Known Home Med 06/05/16 - Allergies Allergies/Adverse Reactions: Allergies Allergy/AdvReac Type Severity Reaction Status Date / Time No Known Allergies Allergy Verified 06/04/16 19:25 Review of Systems ROS Statement: Except As Marked, All Systems Reviewed And Found Negative Constitutional: Negative for: Fever Eyes: Negative for: Vision Change Cardiovascular: Positive for: Light Headedness (near syncope). Negative for: Chest Pain Respiratory: Positive for: Shortness of Breath (since improved) Gastrointestinal: Positive for: Vomiting. Negative for: Nausea Neurological: Positive for: Dizziness (since improved). Negative for: Headache Physical Exam - Reviewed Nursing Documentation Reviewed: Yes Vital Signs Reviewed: Yes - Physical Exam Appears: Positive for: Non-toxic, No Acute Distress Head Exam: Positive for: ATRAUMATIC, NORMOCEPHALIC Skin: Positive for: Normal Color, Warm, Dry Eye Exam: Positive for: Normal appearance, EOMI, PERRL ENT: Positive for: Normal ENT Inspection Neck: Positive for: Normal, Painless ROM, Supple Cardiovascular/Chest: Positive for: Regular Rate, Rhythm. Negative for: Murmur Respiratory: Positive for: Normal Breath Sounds. Negative for: Respiratory Distress Gastrointestinal/Abdominal: Positive for: Normal Exam, Soft. Negative for: Tenderness Back: Positive for: Normal Inspection Extremity: Positive for: Normal ROM (moving all extremities). Negative for: Calf Tenderness, Swelling Neurologic/Psych: Positive for: Alert, aquatics group fitness instructor II-XII (intact), Oriented. Negative for: Motor/Sensory Deficits, Aphasia, Facial Droop - Laboratory Results Result Diagrams: 06/05/16 07:00 06/05/16 04:45 - ECG O2 Sat by Pulse Oximetry: 98 (RA) Pulse Ox Interpretation: Normal - CT Scan/US CT Head w/o contrast Other Rad Studies (CT/US): Read By Radiologist, Radiology Report Reviewed Other Rad Interpretation: see MDM Medical Decision Making Medical Decision Makin:46 Initial Impression: will work up for syncope, vertigo and dyspnea Initial Plan: * EKG * CT Head w/o contrast * CXR * Labs * Troponin I * D-Dimer * PTT * PT * Udip * Meclizine 50mg PO * Reevaluation 22:17 CT Head report reviewed: FINDINGS: Brain: Ventricles are normal in size and configuration. There is no midline shift. There are no intra-axial or extra-axial mass lesions or areas of hemorrhage. There are no abnormal fluid collections. Stafford-white differentiation is maintained. Ventricles: See above. Bones: Cranial vault is intact. Soft tissues: unremarkable Sinuses: There is no acute sinusitis. Ears and mastoids: Middle ears and mastoids are unremarkable. There is debris in the right external auditory canal. Orbits: Orbital contents are unremarkable. IMPRESSION: No acute intracranial abnormality 23:50 Labs reviewed with no clinically significant abnormalities. Patient will be hospitalized within [facility] under the service of Family Practice for near syncope, vertigo and dyspnea. Case has been discussed with Family Practice resident, who has been made aware of patient. Plan has also been discussed with patient, who is in agreement. Clinical Impression: near syncope, vertigo, dyspnea Scribe Attestation: Documented by Sera Cevallos, acting as a scribe for Alicja Otoole MD. Provider Scribe Attestation: All medical record entries made by the Scribe were at my direction and personally dictated by me. I have reviewed the chart and agree that the record accurately reflects my personal performance of the history, physical exam, medical decision making, and the department course for this patient. I have also personally directed, reviewed, and agree with the discharge instructions and disposition. Disposition - Clinical Impression Clinical Impression: Near syncope, Vertigo, Dyspnea - Patient ED Disposition Is Patient to be Admitted: Yes - Disposition Disposition Time: 23:50 Condition: IMPROVED - Pt Status Changed To: Hospital Disposition Of: Observation - POA Present On Arrival: None
[2016-06-04 21:41] LABS: PARTIAL THROMBOPLASTIN TIME 30.5 SECONDS (23.3-32.5)
[2016-06-04 21:52] LABS: ALB/GLOB RATIO 1.2 (1.0-2.1); ALKALINE PHOSPHATASE 76 U/L (38-126); ALT/SGPT 46 U/L (21-72); AST/SGOT 42 U/L (17-59); BILIRUBIN,TOTAL 0.4 mg/dl (0.2-1.3); BLOOD UREA NITROGEN 18 mg/dl (9-20); CALCIUM 9.4 mg/dL (8.4-10.2); CARBON DIOXIDE 27 mmol/L (22-30); CHLORIDE 102 mmol/L (98-107); GFR AFRICAN-AMERICAN > 60; GLUCOSE,RANDOM 102 mg/dL (75-110); SODIUM 142 mmol/l (132-148); TOTAL PROTEIN 7.7 G/DL (6.3-8.2)
[2016-06-04 22:01] LABS: BASOPHIL 1 % (0-2); NEUTROPHIL 81 % (42-75); TOTAL CELLS COUNTED 100
--- NOTE | 2016-06-04 22:17 | CT ---
EXAM: CT Head Without Intravenous Contrast CLINICAL HISTORY: 50 years old, male; Signs and symptoms; Dizziness; Additional info: Vertigo TECHNIQUE: Axial computed tomography images of the head/brain without intravenous contrast. Coronal and sagittal reformatted images were created and reviewed. EXAM DATE/TIME: 06/04/2016 8:42 PM COMPARISON: CT HEAD OR BRAIN W/O CONT 11/04/2011 12:28:57 PM FINDINGS: Brain: Ventricles are normal in size and configuration. There is no midline shift. There are no intra-axial or extra-axial mass lesions or areas of hemorrhage. There are no abnormal fluid collections. Stafford-white differentiation is maintained. Ventricles: See above. Bones: Cranial vault is intact. Soft tissues: unremarkable Sinuses: There is no acute sinusitis. Ears and mastoids: Middle ears and mastoids are unremarkable. There is debris in the right external auditory canal. Orbits: Orbital contents are unremarkable. IMPRESSION: No acute intracranial abnormality
--- NOTE | 2016-06-04 23:47 | CP.PCM.HP ---
History of Present Illness - History of Present Illness History of Present Illness: 50 yo M w/ PMHx of thoracic aorta dilation, dizziness, and UC admitted for near syncope. Occurred at 430PM today while driving, felt dizzy. Took OTC anti- dizziness medication dramamine with no improvement. [place] unsteady and was kneeling down. Denies LOC. Didn't fill meclizine rx yet. a/w SOB and nausea/ vomiting 5x today, food products. Reports unsteady gait. Able to walk 10-20 blocks with no issues. Feels SOB with going up 1 flight of stairs. Previously 3 flights of stairs were not an issue. Will follow with manager dairy Dr. Loredo as new pt on 06/18/16. Denies fever, chills, headache, change of vision, vertigo, chest pain, palpitations, back pain, diarrhea, constipation, or recent illness. Last ECHO 05/15/16 with LVEF 55-60%, aortic root 4.21cm Last CTA with no aortic dissection PMD: [facility] PMHx: thoracic aorta dilation Meds: None Allergies: NKDA Surgeries: b/l inguinal hernia repairs (1992,2011) Family hx: mother-CAD,HTN Social hx: Denies etoh, tobacco, or drug use. 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 3 flights of stairs at home ED Course: VSS CBC, leukocytosis troponin neg CMP WNL EKG CT head no acute changes CXR UA meclizine 25mg PO x1 Present on Admission - Present on Admission Any Indicators Present on Admission: No Review of Systems - Constitutional Constitutional: absent: Chills, Fever - Cardiovascular Cardiovascular: absent: Chest Pain, Dyspnea, Dyspnea on Exertion - Respiratory Respiratory: absent: Dyspnea - Gastrointestinal Gastrointestinal: absent: Abdominal Pain, Diarrhea, Nausea, Vomiting - Genitourinary Genitourinary: absent: Dysuria, Hematuria - Musculoskeletal Musculoskeletal: absent: Back Pain - Neurological Neurological: Dizziness. absent: Headaches Past Patient History - Past Social History Smoking Status: Never Smoked - CARDIAC Hx Cardiac Disorders: No - PULMONARY Hx Asthma: Yes - NEUROLOGICAL Hx Neurological Disorder: Yes Hx Syncope: Yes - HEENT Hx HEENT Problems: No - RENAL Hx Chronic Kidney Disease: No - ENDOCRINE/METABOLIC Hx Endocrine Disorders: No - HEMATOLOGICAL/ONCOLOGICAL Hx Human Immunodeficiency Virus (HIV): No - INTEGUMENTARY Hx Dermatological Problems: No - MUSCULOSKELETAL/RHEUMATOLOGICAL Hx Falls: No - GASTROINTESTINAL Hx Gastrointestinal Disorders: Yes Hx Colitis: Yes - GENITOURINARY/GYNECOLOGICAL Hx Genitourinary Disorders: No - PSYCHIATRIC Hx Psychophysiologic Disorder: No Hx Substance Use: No - SURGICAL HISTORY Hx Surgeries: Yes Hx Herniorrhaphy: Yes (left side) - ANESTHESIA Hx Anesthesia: Yes Hx Anesthesia Reactions: Yes (low bp) Meds Allergies/Adverse Reactions: Allergies Allergy/AdvReac Type Severity Reaction Status Date / Time No Known Allergies Allergy Verified 06/04/16 19:25 Physical Exam - Constitutional Appears: Well, No Acute Distress - Head Exam Head Exam: ATRAUMATIC, NORMAL INSPECTION - Eye Exam Eye Exam: EOMI, PERRL Pupil Exam: PERRL - ENT Exam ENT Exam: Mucous Membranes Moist, Normal Exam - Neck Exam Neck exam: Positive for: Normal Inspection - Respiratory Exam Respiratory Exam: Clear to Auscultation Bilateral - Cardiovascular Exam Cardiovascular Exam: REGULAR RHYTHM - GI/Abdominal Exam GI & Abdominal Exam: Normal Bowel Sounds, Soft - Extremities Exam Extremities exam: Positive for: normal inspection. Negative for: pedal edema - Neurological Exam Neurological exam: Abnormal Gait, Alert, CN II-XII Intact, Oriented x3 - Skin Skin Exam: Dry, Warm Results - Vital Signs Recent Vital Signs: Last Vital Signs Temp 98.5 F 06/04/16 19:25 Pulse 84 06/04/16 19:25 Resp 16 06/04/16 19:25 BP 130/80 06/04/16 19:25 Pulse Ox 98 06/04/16 23:41 - Labs Result Diagrams: 06/04/16 21:05 06/04/16 21:05 Labs: Laboratory Results - last 24 hr 06/04/16 21:05 WBC 12.7 H RBC 4.76 Hgb 13.1 Hct 39.8 MCV 83.6 MCH 27.5 MCHC 32.9 L RDW 13.4 Plt Count 202 MPV 8.0 Neut % (Auto) 84.1 H Lymph % (Auto) 8.8 L [place] % (Auto) 5.7 Eos % (Auto) 0.2 Baso % (Auto) 1.2 Neut # 10.7 H Lymph # 1.1 Ada # 0.7 Eos # 0.0 Baso # 0.1 Neutrophils % (Manual) 81 H Band Neutrophils % 1 Lymphocytes % (Manual) 10 L Monocytes % (Manual) 7 Basophils % (Manual) 1 Platelet Estimate Normal Hypochromasia (manual) Slight Microcytosis (manual) Slight PT 11.1 INR 1.07 APTT 30.5 D-Dimer, Quantitative < 0.19 Sodium 142 Potassium 4.0 Chloride 102 Carbon Dioxide 27 Anion Gap 18 BUN 18 Creatinine 0.8 Est GFR ( Amer) > 60 Est GFR (Non-Af Amer) > 60 Random Glucose 102 Calcium 9.4 Total Bilirubin 0.4 AST 42 ALT 46 Alkaline Phosphatase 76 Troponin I < 0.0120 Total Protein 7.7 Albumin 4.1 Globulin 3.5 Albumin/Globulin Ratio 1.2 Urine Color Straw Urine Clarity Clear Urine pH 7.0 Ur Specific [place] 1.012 Urine Protein Negative Urine Glucose (UA) Neg Urine Ketones Negative Urine Blood Negative Urine Nitrate Negative Urine Bilirubin Negative Urine Urobilinogen 0.2-1.0 Ur Leukocyte Esterase Neg Urine RBC (Auto) < 1 Urine Microscopic WBC < 1 Ur Squamous Epith Cells < 1 Assessment & Plan - Assessment and Plan (Free Text) Assessment: 50 yo M w/ PMHx of thoracic aorta dilation, dizziness, UC admitted for near syncope. near syncope and dizziness -CT head with no acute changes -ECHO no valvular dysfunction, aortic root dilation 4.21cm -EKG unremarkable -carotid duplex -Continuous cardiac monitoring -meclizine -zofran DVT prophylaxis -SCDs prn Decision To Admit - Pt Status Changed To: Hospital Disposition Of: Observation - . Bed Request Type: Telemetry Admitting Physician: Jessika Ng
[2016-06-05 05:02] VITALS: RESP 20
[2016-06-05 07:10] LABS: BLOOD UREA NITROGEN 15 mg/dl (9-20); CALCIUM 9.4 mg/dL (8.4-10.2); CARBON DIOXIDE 29 mmol/L (22-30); CHLORIDE 102 mmol/L (98-107); GFR AFRICAN-AMERICAN > 60; GLUCOSE,RANDOM 99 mg/dL (75-110); POTASSIUM 3.7 MMOL/L (3.6-5.0); SODIUM 145 mmol/l (132-148)
[2016-06-05 07:36] LABS: HEMATOCRIT 40.2 % (35.0-51.0); MEAN CELL VOLUME 83.5 fl (80.0-94.0); MEAN CORPUSCULAR HEMOGLOBIN 27.5 pg (27.0-31.0); MEAN CORPUSCULAR HGB CONC 32.9 g/dL (33.0-37.0); RED CELL DISTRIBUTION WIDTH 13.4 % (11.5-14.5); WHITE BLOOD COUNT 8.6 K/uL (4.8-10.8)
--- NOTE | 2016-06-05 08:52 | RAD ---
HISTORY: Shortness of breath. Upright single-view 21:01. COMPARISON: 11/20/2015. FINDINGS: LUNGS: No active pulmonary disease. PLEURA: No significant pleural effusion identified, no pneumothorax apparent. CARDIOVASCULAR: No radiographic findings to suggest acute or significant cardiovascular disease. OSSEOUS STRUCTURES: No significant abnormalities. VISUALIZED UPPER ABDOMEN: Normal. OTHER FINDINGS: None. IMPRESSION: No active disease. No significant interval change compared to the prior examination(s).
--- NOTE | 2016-06-05 11:36 | CARD ---
APPROVED REPORT EKG Measurement Heart [id number] KS [id number] <Conclusion> Normal sinus rhythm with sinus arrhythmia Normal ECG
[2016-06-05 13:08] VITALS: BP 128/79; PULSE 72; TEMP 97.8
--- NOTE | 2016-06-05 13:27 | US ---
PROCEDURE: Carotid vertebral duplex sonography HISTORY: near syncope, dizziness COMPARISON: 05/30/2015. TECHNIQUE: Grayscale, color Doppler and spectral Doppler assessment of the carotid system bilaterally. This includes common carotid, internal carotid arteries Vertebral artery assessment with respect to direction of flow (antegrade or retrograde) FINDINGS: RIGHT carotid system: Assessment of plaque: Focal plaque formation in the bulb Peak systolic ICA velocity: 86.0 cm/sec End-diastolic velocity: 39.0 cm/sec ICA/CCA ratio: 0.9 Vertebral artery flow: Antegrade LEFT carotid system: Assessment of plaque: Focal plaque formation in the bulb Peak systolic ICA velocity: 77.7 cm/sec End-diastolic velocity: 37.7 cm/sec ICA/CCA ratio: 0.7 Vertebral artery flow: Antegrade IMPRESSION: Right ICA degree of stenosis: Less than 50% Left ICA degree of stenosis: Less than 50% No significant interval change compared to the prior examination(s). Reference Internal Carotid Artery (ICA) Peak Systolic Velocity (PSV) for above: 1. Less than 50% stenosis less than 125 cm/s peak systolic velocity 2. 50-69% stenosis 125-230cm/s peak systolic velocity 3. Greater than 70% but less than near occlusion greater than 230 cm/s peak systolic velocity
--- NOTE | 2016-06-05 14:03 | CP.PCM.DIS ---
Provider - Provider Date of Admission: 06/04/16 23:40 Attending physician: Beverly Eduardo MD Time Spent in preparation of Discharge (in minutes): 30 Diagnosis - Discharge Diagnosis (1) Near syncope Status: Acute Hospital Course - Lab Results Lab Results: Most Recent Lab Values WBC 8.6 K/uL (4.8-10.8) 06/05/16 07:00 RBC 4.81 Mil/uL (4.40-5.90) 06/05/16 07:00 Hgb 13.2 g/dL (12.0-18.0) 06/05/16 07:00 Hct 40.2 % (35.0-51.0) 06/05/16 07:00 MCV 83.5 fl (80.0-94.0) 06/05/16 07:00 MCH 27.5 pg (27.0-31.0) 06/05/16 07:00 MCHC 32.9 g/dL (33.0-37.0) L 06/05/16 07:00 RDW 13.4 % (11.5-14.5) 06/05/16 07:00 Plt Count 190 K/uL (130-400) 06/05/16 07:00 MPV 8.0 fl (7.2-11.7) 06/04/16 21:05 Neut % (Auto) 84.1 % (50.0-75.0) H 06/04/16 21:05 Lymph % (Auto) 8.8 % (20.0-40.0) L 06/04/16 21:05 [place] % (Auto) 5.7 % (0.0-10.0) 06/04/16 21:05 Eos % (Auto) 0.2 % (0.0-4.0) 06/04/16 21:05 Baso % (Auto) 1.2 % (0.0-2.0) 06/04/16 21:05 Neut # 10.7 K/uL (1.8-7.0) H 06/04/16 21:05 Lymph # 1.1 K/uL (1.0-4.3) 06/04/16 21:05 [place] # 0.7 K/uL (0.0-0.8) 06/04/16 21:05 Eos # 0.0 K/uL (0.0-0.7) 06/04/16 21:05 Baso # 0.1 K/uL (0.0-0.2) 06/04/16 21:05 Neutrophils % (Manual) 81 % (42-75) H 06/04/16 21:05 Band Neutrophils % 1 % (0-2) 06/04/16 21:05 Lymphocytes % (Manual) 10 % (20-50) L 06/04/16 21:05 Monocytes % (Manual) 7 % (0-10) 06/04/16 21:05 Basophils % (Manual) 1 % (0-2) 06/04/16 21:05 Platelet Estimate Normal (NORMAL) 06/04/16 21:05 Hypochromasia (manual) Slight 06/04/16 21:05 Microcytosis (manual) Slight 06/04/16 21:05 PT 11.1 SECONDS (9.6-11.2) 06/04/16 21:05 INR 1.07 (0.92-1.08) 06/04/16 21:05 APTT 30.5 SECONDS (23.3-32.5) 06/04/16 21:05 D-Dimer, Quantitative < 0.19 mg/L FEU (0-0.50) 06/04/16 21:05 Sodium 145 mmol/l (132-148) 06/05/16 04:45 Potassium 3.7 MMOL/L (3.6-5.0) 06/05/16 04:45 Chloride 102 mmol/L (98-107) 06/05/16 04:45 Carbon Dioxide 29 mmol/L (22-30) 06/05/16 04:45 Anion Gap 17 (10-20) 06/05/16 04:45 BUN 15 mg/dl (9-20) 06/05/16 04:45 Creatinine 0.8 mg/dL (0.8-1.5) 06/05/16 04:45 Est GFR ( Amer) > 60 06/05/16 04:45 Est GFR (Non-Af Amer) > 60 06/05/16 04:45 Random Glucose 99 mg/dL (75-110) 06/05/16 04:45 Calcium 9.4 mg/dL (8.4-10.2) 06/05/16 04:45 Total Bilirubin 0.4 mg/dl (0.2-1.3) 06/04/16 21:05 AST 42 U/L (17-59) 06/04/16 21:05 ALT 46 U/L (21-72) 06/04/16 21:05 Alkaline Phosphatase 76 U/L (38-126) 06/04/16 21:05 Troponin I < 0.0120 ng/mL (0.00-0.120) 06/04/16 21:05 Total Protein 7.7 G/DL (6.3-8.2) 06/04/16 21:05 Albumin 4.1 g/dL (3.5-5.0) 06/04/16 21:05 Globulin 3.5 gm/dL (2.2-3.9) 06/04/16 21:05 Albumin/Globulin Ratio 1.2 (1.0-2.1) 06/04/16 21:05 Urine Color Straw (YELLOW) 06/04/16 21:05 Urine Clarity Clear (Clear) 06/04/16 21:05 Urine pH 7.0 (5.0-8.0) 06/04/16 21:05 Ur Specific [place] 1.012 (1.003-1.030) 06/04/16 21:05 Urine Protein Negative mg/dL (NEGATIVE) 06/04/16 21:05 Urine Glucose (UA) Neg mg/dL (Normal) 06/04/16 21:05 Urine Ketones Negative mg/dL (NEGATIVE) 06/04/16 21:05 Urine Blood Negative (NEGATIVE) 06/04/16 21:05 Urine Nitrate Negative (NEGATIVE) 06/04/16 21:05 Urine Bilirubin Negative (NEGATIVE) 06/04/16 21:05 Urine Urobilinogen 0.2-1.0 mg/dL (0.2-1.0) 06/04/16 21:05 Ur Leukocyte Esterase Neg Som/uL (Negative) 06/04/16 21:05 Urine RBC (Auto) < 1 /hpf (0-3) 06/04/16 21:05 Urine Microscopic WBC < 1 /hpf (0-5) 06/04/16 21:05 Ur Squamous Epith Cells < 1 /hpf (0-5) 06/04/16 21:05 - Hospital Course Hospital Course: The patient is a 50 y/o man w/ PMHx of thoracic aorta dilation, dizziness, and ulcerative colitis admitted for near syncope. The patient was admitted for similar complaint about 3 weeks ago; however, this presentation included headache that started 1 week prior to admission. The patient was seen in ED and given meclizine for the dizziness which gave no relief. The patient had EKG , CXR, and head CT which were all WNL. Labs including CBC, CMP, coags, troponin , and UA were also WNL. The patient had a carotid and vertebral artery ultrasound study which was also WNL. The patient will not be discharged with further medication for dizziness. The patient is to follow up with wooden shade hardware installer , Dr. Loredo on 06/11/2016 @ 11:15 AM, where the patient is to discuss advanced imaging for thoracic aortic root dilation. The patient is to follow up with GI regarding UC and has scheduled colonoscopy on 08/06/2016. The patient is to follow up with [facility] for health maintenance, where the patient may discuss possible need for EEG as out patient or other work up regarding dizziness. The patient has been seen, examined, and deemed medically fit with no contraindication for discharge home. Discharge Exam - Head Exam Head Exam: ATRAUMATIC, NORMAL INSPECTION - Eye Exam Eye Exam: EOMI Pupil Exam: PERRL - ENT Exam ENT Exam: Mucous Membranes Moist - Respiratory Exam Respiratory Exam: Clear to PA & Lateral. absent: Accessory Muscle Use, Chest Wall Tenderness, Decreased Breath Sounds, Prolonged Expiratory Phase, Rales, Rhonchi, Wheezes, Respiratory Distress, Stridor - Cardiovascular Exam Cardiovascular Exam: REGULAR RHYTHM. absent: Tachycardia - GI/Abdominal Exam GI & Abdominal Exam: Normal Bowel Sounds, Soft. absent: Distended, Tenderness - Extremities Exam Extremities exam: normal inspection - Neurological Exam Neurological exam: Alert, CN II-XII Intact, Normal Gait, Oriented x3 - Skin Skin Exam: Dry, Intact, Normal Color, Warm Discharge Plan - Follow Up Plan Condition: IMPROVED Disposition: HOME/ ROUTINE Instructions: Syncope (DC), Dyspnea (GEN) Referrals: [facility] [Outside] Shavonne Blanco MD [Family Provider] - Ariel Loredo MD [Staff Provider] -
[2016-06-08 21:25] VITALS: O2SAT 98
== END 2016-06-05 15:14 | disposition home or self-care (01) ==
LOC: H.ER 19:15 → H.ERHOLD 23:40 → H.TEL 06-05 02:16
PROVIDERS: ADMIT Family Medicine Geriatric Medicine; ATTEND Family Medicine Geriatric Medicine
DX: R55 Syncope and collapse (principal); J45.909 Unspecified asthma, uncomplicated; K51.90 Ulcerative colitis, unspecified, without complications; J44.9 Chronic obstructive pulmonary disease, unspecified

== ENCOUNTER 2016-06-12 12:28 | Emergency (ER) | payer OTHER, SELFPAY ==
[2016-06-12 12:40] VITALS: BP 136/95; PULSE 89; RESP 16; TEMP 98.4; O2SAT 100; BMI 21.9
[2016-06-12] MEDS ORDERED: Iohexol 240 (50 ml) PO ONE (13:00)
[2016-06-12] MEDS ORDERED: Sodium Chloride 0.9% 1,000 ML IV STA (13:02)
--- NOTE | 2016-06-12 13:05 | ED PDOC ---
HPI: Abdomen Time Seen by Provider: 06/12/16 13:03 Chief Complaint (Nursing): Abdominal Pain Chief Complaint (Provider): ABDOMINAL PAIN History Per: Patient (50 Y/O MALE HERE WITH LEFT LOWER ABDOMINAL PAIN INTERMITTENTLY RADIATING TO BACK X 1 WEEK. PATIENT DENIES ANY DIARRHEA/ DYSURIA. HAS H/O ULCERATIVE COLITIS AND IS PENDING COLONOSCOPY WITH DR. MORILLO. IS NOT CURRENTLY ON MEDICATIONS HE RECENTLY WAS SEEN IN CLINIC. PATIENT ALSO SUFFERS FROM SYNCOPAL EPISODES AND HAS HAD DROP IN BLOOD PRESSURE/ DIZZINESS ASSOCIATED WITH LOWER ABDOMINAL PAIN.) Past Medical History Reviewed: Historical Data, Nursing Documentation, Vital Signs Vital Signs: Last Vital Signs Temp 98.4 F 06/12/16 12:38 Pulse 89 06/12/16 12:38 Resp 16 06/12/16 12:38 BP 136/95 H 06/12/16 12:38 Pulse Ox 100 06/12/16 17:00 - Medical History PMH: Asthma, Cardiac Aneurysm Denies: HIV, Chronic Kidney Disease - Surgical History Surgical History: Hernia Repair - Family History Family History: States: Unknown Family Hx, Hypertension (mother) - Immunization History Hx Tetanus Toxoid Vaccination: No - Home Medications Home Medications: Ambulatory Orders Medication Instructions Recorded Docusate [Colace] 100 mg PO BID #20 cap 06/12/16 Phosphate Enema [Fleet Enema 135 135 ml RC ONCE PRN #1 nma 06/12/16 Ml] - Allergies Allergies/Adverse Reactions: Allergies Allergy/AdvReac Type Severity Reaction Status Date / Time No Known Allergies Allergy Verified 06/12/16 12:38 Review of Systems ROS Statement: Except As Marked, All Systems Reviewed And Found Negative Physical Exam - Reviewed Nursing Documentation Reviewed: Yes Vital Signs Reviewed: Yes - Physical Exam Appears: Positive for: Well, Non-toxic, No Acute Distress Head Exam: Positive for: ATRAUMATIC, NORMAL INSPECTION, NORMOCEPHALIC Skin: Positive for: Normal Color, Warm, DRY Eye Exam: Positive for: EOMI, Normal appearance, PERRL ENT: Positive for: Normal ENT Inspection Neck: Positive for: Normal, Painless ROM Cardiovascular/Chest: Positive for: Regular Rate, Rhythm Respiratory: Positive for: CNT, Normal Breath Sounds Gastrointestinal/Abdominal: Positive for: Normal Exam, Bowel Sounds, Soft, Tenderness (LEFT LOWER QUADRANT TENDERNESS) Male Genital Exam: Negative for: normal genitalia, inguinal tenderness, scrotum tenderness (R), scrotum tenderness (L) Back: Positive for: Normal Inspection Extremity: Positive for: Normal ROM Neurologic/Psych: Positive for: Alert, Oriented - Laboratory Results Result Diagrams: 06/12/16 13:23 06/12/16 13:23 - ECG O2 Sat by Pulse Oximetry: 100 - Progress ED Course And Treament: CT ABD/PELVIS: CONSTIPATION. Disposition - Clinical Impression Clinical Impression: Constipation - Patient ED Disposition Is Patient to be Admitted: No - Disposition Disposition: Routine/Home Disposition Time: 16:59 Condition: FAIR Prescriptions: Docusate [Colace] 100 mg PO BID #20 cap Phosphate Enema [Fleet Enema 135 Ml] 135 ml RC ONCE PRN #1 nma PRN Reason: Constipation Instructions: Constipation (GEN), High Fiber Diet (ED) Forms: [facility] ED School/Work Excuse
[2016-06-12 13:28] LABS: BASO # 0.1 K/uL (0.0-0.2); BASO % 0.5 % (0.0-2.0); EOS % 0.3 % (0.0-4.0); LYMPH # 1.3 K/uL (1.0-4.3); MEAN CORPUSCULAR HEMOGLOBIN 27.9 pg (27.0-31.0); MEAN CORPUSCULAR HGB CONC 34.1 g/dL (33.0-37.0); MEAN PLATELET VOLUME 8.3 fl (7.2-11.7); MONO # 0.7 K/uL (0.0-0.8); MONO % 7.1 % (0.0-10.0); NEUT # 7.4 K/uL (1.8-7.0); NEUT % 78.1 % (50.0-75.0); NRBC % 0.1 % (0.0-0.0); RED CELL DISTRIBUTION WIDTH 13.3 % (11.5-14.5); WHITE BLOOD COUNT 9.4 K/uL (4.8-10.8)
[2016-06-12 13:35] LABS: RBC URINE 3 /hpf (0-3); URINE BILIRUBIN NEGATIVE (NEGATIVE); URINE BLOOD NEGATIVE (NEGATIVE); URINE COLOR LIGHT YELLOW (YELLOW); URINE GLUCOSE (UA) NEGATIVE (Normal); URINE KETONE NEGATIVE (NEGATIVE); URINE LEUKOCYTE ESTERASE NEGATIVE Leu/uL (Negative); URINE PROTEIN NEGATIVE (NEGATIVE); URINE UROBILINOGEN 0.2 mg/dL (0.2-1.0); WBC URINE 2 /hpf (0-5)
[2016-06-12 13:40] LABS: ALB/GLOB RATIO 1.1 (1.0-2.1); ALKALINE PHOSPHATASE 86 U/L (38-126); ALT/SGPT 46 U/L (21-72); AST/SGOT 39 U/L (17-59); BILIRUBIN,TOTAL 0.8 mg/dl (0.2-1.3); BLOOD UREA NITROGEN 17 mg/dl (9-20); CALCIUM 9.8 mg/dL (8.4-10.2); CARBON DIOXIDE 26 mmol/L (22-30); CHLORIDE 104 mmol/L (98-107); GFR AFRICAN-AMERICAN > 60; GLUCOSE,RANDOM 90 mg/dL (75-110); LIPASE 63 U/L (23-300); POTASSIUM 3.8 MMOL/L (3.6-5.0); SODIUM 145 mmol/l (132-148); TOTAL PROTEIN 8.1 G/DL (6.3-8.2)
[2016-06-12] MEDS ORDERED: Iohexol 300 100 ML IJ ONE (14:42)
[2016-06-12] MEDS ORDERED: Sodium Chloride 0.9% 50 ML IV ONE (14:43)
--- NOTE | 2016-06-12 16:01 | CT ---
PROCEDURE: CT Abdomen and Pelvis with contrast HISTORY: Abdominal pain, left lower quadrant pain. Relevant medical history: ULCERATIVE COLITIS COMPARISON: 02/28/2014. CT abdomen and pelvis. TECHNIQUE: Contrast dose: 95 cc Omnipaque 300 Radiation dose: Total exam DLP = 583.34. MGy-cm. This CT exam was performed using one or more of the following dose reduction techniques: Automated exposure control, adjustment of the mA and/or kV according to patient size, and/or use of iterative reconstruction technique. FINDINGS: LOWER THORAX: Incompletely visualize bronchiectasis right middle lobe. Otherwise no significant findings LIVER: Unremarkable. No gross lesion or ductal dilatation. GALLBLADDER AND BILE DUCTS: Unremarkable. PANCREAS: Unremarkable. No gross lesion or ductal dilatation. SPLEEN: Unremarkable. ADRENALS: Unremarkable. No mass. KIDNEYS AND URETERS: Unremarkable. No hydronephrosis. No solid mass. VASCULATURE: Unremarkable. No aortic aneurysm. BOWEL: Unremarkable. No obstruction. No gross mural thickening. Constipation without fecal impaction or obstruction. APPENDIX: Normal appendix. PERITONEUM: Unremarkable. No free fluid. No free air. LYMPH NODES: Unremarkable. No enlarged lymph nodes. BLADDER: Unremarkable. REPRODUCTIVE: Unremarkable. BONES: No acute fracture. OTHER FINDINGS: None. IMPRESSION: No acute findings related to/accounting for the clinical presentation.
== END 2016-06-12 17:42 | disposition home or self-care (01) ==
LOC: H.ER 12:28
DX: K51.90 Ulcerative colitis, unspecified, without complications (principal)

== ENCOUNTER 2016-08-06 09:54 | Day surgery (SDC) | payer OTHER ==
[2016-08-06] MEDS ORDERED: Lactated Ringer's 500 ML IV ONE (10:16)
[2016-08-06 10:26] VITALS: TEMP 96.9; O2SAT 100
[2016-08-06 12:02] VITALS: BP 110/66; PULSE 70; RESP 18
== END 2016-08-06 12:12 | disposition home or self-care (01) ==
LOC: H.ENDO 09:54
PROVIDERS: ATTEND Internal Medicine Gastroenterology
DX: R10.13 Epigastric pain (principal); K29.70 Gastritis, unspecified, without bleeding; K31.7 Polyp of stomach and duodenum

== ENCOUNTER 2016-08-26 13:55 | Observation (INO) | payer SELFPAY ==
[2016-08-26 13:56] VITALS: BMI 21.9
[2016-08-26 15:05] LABS: BASO # 0.1 K/uL (0.0-0.2); BASO % 0.8 % (0.0-2.0); EOS % 0.3 % (0.0-4.0); HEMOGLOBIN 14.1 g/dL (12.0-18.0); LYMPH # 1.1 K/uL (1.0-4.3); LYMPH % 10.3 % (20.0-40.0); MEAN CELL VOLUME 83.2 fl (80.0-94.0); MEAN CORPUSCULAR HEMOGLOBIN 27.6 pg (27.0-31.0); MEAN CORPUSCULAR HGB CONC 33.1 g/dL (33.0-37.0); MEAN PLATELET VOLUME 8.4 fl (7.2-11.7); MONO # 0.7 K/uL (0.0-0.8); MONO % 6.9 % (0.0-10.0); NEUT # 8.6 K/uL (1.8-7.0); NEUT % 81.7 % (50.0-75.0); NRBC % 0.1 % (0.0-0.0); RBC 5.11 Mil/uL (4.40-5.90); RED CELL DISTRIBUTION WIDTH 13.1 % (11.5-14.5); WHITE BLOOD COUNT 10.5 K/uL (4.8-10.8)
[2016-08-26 15:08] LABS: SQUAMOUS EPITHIAL < 1 /hpf (0-5); URINE BILIRUBIN NEGATIVE (NEGATIVE); URINE BLOOD NEGATIVE (NEGATIVE); URINE CLARITY CLEAR (Clear); URINE COLOR YELLOW (YELLOW); URINE GLUCOSE (UA) NEG (Normal); URINE LEUKOCYTE ESTERASE NEG Leu/uL (Negative); URINE NITRATE NEGATIVE (NEGATIVE); URINE PROTEIN NEGATIVE (NEGATIVE); URINE UROBILINOGEN 0.2-1.0 mg/dL (0.2-1.0)
[2016-08-26 15:21] LABS: ALB/GLOB RATIO 1.2 (1.0-2.1); ALBUMIN 4.6 g/dL (3.5-5.0); ALT/SGPT 56 U/L (21-72); AST/SGOT 46 U/L (17-59); BLOOD UREA NITROGEN 16 mg/dl (9-20); CALCIUM 9.6 mg/dL (8.4-10.2); GFR AFRICAN-AMERICAN > 60; GFR NON-AFRICAN AMERICAN > 60
--- NOTE | 2016-08-26 15:21 | ED PDOC ---
HPI: SOB/CHF/COPD Time Seen by Provider: 08/26/16 14:34 Chief Complaint (Nursing): Shortness Of Breath Chief Complaint (Provider): Shortness Of Breath History Per: Patient History/Exam Limitations: no limitations Onset/Duration Of Symptoms: Days (x 3 days) Current Symptoms Are (Timing): Still Present Additional Complaint(s): Paul Grande is a 50-year-old male with a history of aortic root dilatation who presents to the emergency department complaining of nausea, dizziness, near syncope, vomiting, lightheadedness, mild headache, slight chest pain, and shortness of breath, occurring intermittently x 3 days. Patient reports that laying down improves his dizziness, and admits to taking bonide for relief of symptoms. Patient reports experiencing similar symptoms in the past, and states he had an MRI of the brain in June which was unremarkable. He is pending a tilt table test and Holter test. Patient denies fever, abdominal pain, and diarrhea. PMD: Dr. Farah Past Medical History Reviewed: Historical Data, Nursing Documentation, Vital Signs Vital Signs: Last Vital Signs Temp 97.6 F 08/27/16 08:00 Pulse 55 L 08/27/16 08:00 Resp 18 08/27/16 08:00 BP 115/79 08/27/16 08:00 Pulse Ox 99 08/27/16 08:00 - Medical History PMH: Asthma, Bronchitis, Cardiac Aneurysm Denies: HIV, Chronic Kidney Disease - Surgical History Surgical History: Hernia Repair - Family History Family History: States: Unknown Family Hx, Hypertension (mother) - Social History Current smoker - smoking cessation education provided: No Alcohol: None Drugs: Denies - Immunization History Hx Tetanus Toxoid Vaccination: No - Home Medications Home Medications: Ambulatory Orders Medication Instructions Recorded No Known Home Med 08/06/16 - Allergies Allergies/Adverse Reactions: Allergies Allergy/AdvReac Type Severity Reaction Status Date / Time No Known Allergies Allergy Verified 06/12/16 12:38 Curb-65 Severity Score - CURB-65 Severity Score Confusion: No Bun >19mg/dl (>7mmol/L): No Respiratory Rate greater than/equal to 30: No Systolic BP <90 or Diastolic BP less than/equal 60mmHg: No Age >64: No Curb-65 Score: 0 Percentage 30-day mortality: 0.6% Wells Criteria for PE - Wells Criteria for Pulmonary Embolism Clinical Signs and Symptoms of DVT: No P.E is #1 Diagnosis, or Equally Likely: No Heart Rate >100: No Immobilization at least 3 days;Surgery previous 4 weeks: No Previous, objectively diagnosed PE or DVT: No Hemoptysis: No Malignancy w/treatment within 6 months, or palliative: No Total Score: 0 Review of Systems ROS Statement: Except As Marked, All Systems Reviewed And Found Negative Constitutional: Negative for: Fever Cardiovascular: Positive for: Chest Pain (Slight), Light Headedness Respiratory: Positive for: Shortness of Breath Gastrointestinal: Positive for: Nausea, Vomiting. Negative for: Abdominal Pain , Diarrhea Neurological: Positive for: Headache, Dizziness, Other (Near syncope) Physical Exam - Reviewed Nursing Documentation Reviewed: Yes Vital Signs Reviewed: Yes - Physical Exam Appears: Positive for: Non-toxic, No Acute Distress Head Exam: Positive for: ATRAUMATIC, NORMAL INSPECTION, NORMOCEPHALIC Skin: Positive for: Normal Color, Warm, Dry Neck: Positive for: Normal, Painless ROM, Supple Cardiovascular/Chest: Positive for: Regular Rate, Rhythm. Negative for: Murmur Respiratory: Positive for: Normal Breath Sounds. Negative for: Accessory Muscle Use, Respiratory Distress Neurologic/Psych: Positive for: Alert, Oriented - Laboratory Results Result Diagrams: 08/26/16 14:59 08/26/16 14:59 - ECG Interpretation Of ECG: NSR @ 76, no ST-T changes. O2 Sat by Pulse Oximetry: 98 (RA) Pulse Ox Interpretation: Normal Medical Decision Making Medical Decision Making: Time: 14:54 Initial impression: Dizziness Initial plan: --EKG --CMP --CBC --Troponin I --ED Urine dipstick --PTT --Prothrombin Time --CXR --AccuCheck --Urinalysis --Reevaluation Time: 15:53 Chest X-ray FINDINGS: LUNGS: Mild biapical pleural thickening and adjacent parenchymal scarring. PLEURA: No significant pleural effusion identified. No pneumothorax apparent. CARDIOVASCULAR: Normal. OSSEOUS STRUCTURES: No significant abnormalities. . Probable mild pectus excavatum deformity. VISUALIZED UPPER ABDOMEN: Normal. OTHER FINDINGS: Mild biapical pleural thickening and parenchymal IMPRESSION: Mild biapical pleural thickening and parenchymal scarring Time: Scribe Attestation: Documented by Keira Ibarra, acting as a scribe for Alicja Otoole MD. Provider Scribe Attestation: All medical record entries made by the Scribe were at my direction and personally dictated by me. I have reviewed the chart and agree that the record accurately reflects my personal performance of the history, physical exam, medical decision making, and the department course for this patient. I have also personally directed, reviewed, and agree with the discharge instructions and disposition. Disposition - Clinical Impression Clinical Impression: Near syncope, Chest pain - Patient ED Disposition Is Patient to be Admitted: Yes - Disposition Disposition Time: 18:07 Condition: STABLE - Pt Status Changed To: Hospital Disposition Of: Observation - POA Present On Arrival: None
[2016-08-26 15:27] LABS: INR 1.1 (0.9-1.2); PROTHROMBIN TIME 12.3 Seconds (9.8-13.1)
[2016-08-26 15:28] LABS: PARTIAL THROMBOPLASTIN TIME 33.1 Seconds (25.6-37.1)
[2016-08-26] MEDS ORDERED: Sodium Chloride 0.9% 1,000 ML IV STA (15:44)
--- NOTE | 2016-08-26 15:55 | RAD ---
HISTORY: Dizziness COMPARISON: Comparison chest 06/04/2016 comparison also made with CTA of the chest dated 07/20/2015 TECHNIQUE: Chest PA and lateral FINDINGS: LUNGS: Mild biapical pleural thickening and adjacent parenchymal scarring. PLEURA: No significant pleural effusion identified. No pneumothorax apparent. CARDIOVASCULAR: Normal. OSSEOUS STRUCTURES: No significant abnormalities. . Probable mild pectus excavatum deformity. VISUALIZED UPPER ABDOMEN: Normal. OTHER FINDINGS: Mild biapical pleural thickening and parenchymal IMPRESSION: Mild biapical pleural thickening and parenchymal scarring
--- NOTE | 2016-08-26 19:12 | CP.PCM.HP ---
History of Present Illness - History of Present Illness History of Present Illness: 50 yo M w PMHx of 4.4cm ascending aortic root dilatation and a >1 year h/o nausea, dizziness, and near syncope is admitted for chest pain. As presently seen, his complaints of pain, nausea, and dizziness have resolved. When present , he describes the pain as sharp, 4/10, sharp, non radiating, and often associated episodes of nausea, vomiting, dizziness, and near syncope. At the current moment, he denies any LOC, headstrike, trauma, or jaw/neck/arm pain. During the previous weekend while vacationing at the [place], pt began experiencing nausea and dizziness on Friday w episodes of nonbloody vomiting that night. His chest discomfort began Friday, at which point the family decided to drive back home. During the day today his discomfort turned to pain, which is what prompted the ER visit. Additionally, pt is scheduled for tilt table test and holter monitoring in one week. Otherwise, he denies any fevers/ chills, abdominal pain, hematuria, dysuria, or myalgias. PMD: Francis PMHx: 4.4cm ascending aortic root dilatation PSHx: b/l inguinal hernia repairs (1992,2011) NKDA Home Meds: None FHx: Mother: CAD, HTN SHx: Denies etoh, tobacco, or drug use. 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 ED Course: --CMP --CBC --EKG --Troponin I --PTT --Prothrombin Time --CXR --AccuCheck --Urinalysis --ED Urine dipstick Present on Admission - Present on Admission Any Indicators Present on Admission: No History of DVT/PE: No History of Uncontrolled Diabetes: No Urinary Catheter: No Decubitus Ulcer Present: No Review of Systems - Review of Systems All systems: reviewed and no additional remarkable complaints except (see HPI) Past Patient History - Past Medical History & Family History Past Medical History?: Yes - Past Social History Alcohol: None Drugs: Denies - CARDIAC Hx Cardiac Disorders: Yes Other/Comment: AORTIC ROOT DILATATION - PULMONARY Hx Asthma: Yes Hx Bronchitis: Yes - NEUROLOGICAL Hx Neurological Disorder: No - HEENT Hx HEENT Problems: No - RENAL Hx Chronic Kidney Disease: No - ENDOCRINE/METABOLIC Hx Endocrine Disorders: No - HEMATOLOGICAL/ONCOLOGICAL Hx Human Immunodeficiency Virus (HIV): No - INTEGUMENTARY Hx Dermatological Problems: No - MUSCULOSKELETAL/RHEUMATOLOGICAL Hx Musculoskeletal Disorders: No - GASTROINTESTINAL Hx Gastrointestinal Disorders: Yes Hx Colitis: Yes - GENITOURINARY/GYNECOLOGICAL Hx Genitourinary Disorders: No - PSYCHIATRIC Hx Emotional Abuse: No Hx Physical Abuse: No Hx Substance Use: No - SURGICAL HISTORY Hx Surgeries: Yes Hx Herniorrhaphy: Yes (ROSIE. INGUINAL) - ANESTHESIA Hx Anesthesia: Yes Hx Anesthesia Reactions: No Hx Malignant Hyperthermia: No Meds Allergies/Adverse Reactions: Allergies Allergy/AdvReac Type Severity Reaction Status Date / Time No Known Allergies Allergy Verified 06/12/16 12:38 Physical Exam - Constitutional Appears: Non-toxic, No Acute Distress - Head Exam Head Exam: ATRAUMATIC, NORMOCEPHALIC - Eye Exam Eye Exam: EOMI Pupil Exam: PERRL - ENT Exam ENT Exam: Mucous Membranes Moist - Neck Exam Neck exam: Positive for: Full Rom - Respiratory Exam Respiratory Exam: Clear to Auscultation Bilateral, NORMAL BREATHING PATTERN - Cardiovascular Exam Cardiovascular Exam: REGULAR RHYTHM - GI/Abdominal Exam GI & Abdominal Exam: Normal Bowel Sounds, Soft. absent: Tenderness - Extremities Exam Extremities exam: Negative for: calf tenderness, pedal edema - Back Exam Back exam: absent: CVA tenderness (L), CVA tenderness (R) - Neurological Exam Neurological exam: Alert, CN II-XII Intact, Oriented x3 - Psychiatric Exam Psychiatric exam: Normal Affect, Normal Mood - Skin Skin Exam: Dry, Normal Color, Warm Results - Vital Signs Recent Vital Signs: Last Vital Signs Temp 97 F L 08/26/16 14:04 Pulse 82 08/26/16 18:28 Resp 19 08/26/16 18:28 BP 130/90 08/26/16 18:28 Pulse Ox 98 08/26/16 18:28 - Labs Result Diagrams: 08/26/16 14:59 08/26/16 14:59 Assessment & Plan - Assessment and Plan (Free Text) Plan: 50 yo M w PMHx of 4.4cm ascending aortic root dilatation and a >1 year h/o nausea, dizziness, and near syncope is admitted for chest pain 1) Chest Pain r/o ACS w associated nausea and dizziness -Patient w >1 year h/o nausea, dizziness, near syncope, and mild chest tightness -Troponin Neg x1 -EKG wnl -CT Angio (Apr): No evidence of thoracic aortic dissection. ---Noncontrast exam shows no evidence to suggest acute intramural hematoma. The dimensions of the thoracic aorta at the sinuses of Valsalva are appx 4.4cm noting that measured similarly to the previous study this is within measurement error. ---At least one Pulmonary nodule appears new, per Fleisch[place]ir Society guidelines for follow up and management of Pulmonary Nodules: Recommend initial follow up chest CT at 3, 9, and 24 months. Consider contrast enhanced Chest CT. -Brain MRI (June): No acute intracranial hemorrhage or infarct. No enhancing masses or collections. -Carotid U/S (May): Right ICA- < 50% stenosis; Left ICA- < 50% stenosis -Cardiac Echo (Apr): LV Normal Size; LV Fcn Normal; LVEF 55-60%; Aortic Root mildly enlarged at 4.21cm. -Zofran 4mg IVP Q6H -f/u EKG -f/u Troponins -f/u Vitals -f/u Orthostatic BPs -f/u patient's symptoms -f/u CTA for aortic dissection eval and f/u pulmonary nodule management -Consider Cardio Consult w Dr Loredo, as he's recently seen the patient for known complaints 2) DVT Prophylaxis -SCDs -Lovenox 40mg SC Daily, if no dissection is discovered
[2016-08-26] MEDS ORDERED: Sodium Chloride 0.9% 100 ML ONE (21:46)
[2016-08-26] MEDS ORDERED: Iohexol 300 100 ML IJ ONE (21:46)
--- NOTE | 2016-08-26 23:15 | CT ---
EXAM: CT Angiography Chest With Intravenous Contrast CLINICAL HISTORY: 50 years old, male; Pain and signs and symptoms; Shortness of breath and other: Dizziness; Chest pain; Type not specified; Additional info: Chest pain w h/o dilated aorta + pulm nodule eval TECHNIQUE: Axial computed tomographic angiography images of the chest with intravenous contrast using pulmonary embolism protocol. This CT exam was performed using one or more of the following dose reduction techniques: automated exposure control, adjustment of the mA and/or kV according to patient size, and/or use of iterative reconstruction technique. MIP reconstructed images were created and reviewed. Coronal and sagittal reformatted images were created and reviewed. CONTRAST: 80 mL of omnipaque administered intravenously. COMPARISON: 05/14/2016 and 12/28/15 FINDINGS: Pulmonary arteries: No pulmonary embolism. Aorta: The ascending thoracic aorta measures 4.4 cm, unchanged from prior examination. The descending thoracic aorta is unremarkable. Lungs: Biapical scarring. Nodular pleural thickening is identified bilaterally. Bronchiectasis is noted within the right middle lobe, unchanged. 6 mm nodule within the right middle lobe (series 5, image 55) stable from prior examination. Stable pleural based 7 mm nodule within the left lower lobe (series 5, image 59). No discrete mass. No consolidation. Pleural spaces: As above. Heart: No cardiomegaly. No significant pericardial effusion. No evidence of right heart dysfunction. Bones: No acute fracture. Lymph nodes: No pathologically enlarged lymph nodes. Within the upper abdomen: The gallbladder is decompressed. Stable 11 mm focus of decreased attenuation within the posterior limb of the right adrenal gland, unchanged dating back to 2016. IMPRESSION: No pulmonary embolism. Nodular pleural thickening with right middle lobe bronchiectasis. Stable ascending thoracic aorta size. Stable bilateral pulmonary nodules.
[2016-08-27 04:48] VITALS: TEMP 97.6
--- NOTE | 2016-08-27 08:23 | CARD ---
APPROVED REPORT EKG Measurement Heart [id number] <Conclusion> Normal sinus rhythm Normal ECG
[2016-08-27 08:45] VITALS: BP 115/79; PULSE 55; RESP 18
[2016-08-27] MEDS ORDERED: Enoxaparin 40 mg Syringe SC SCH (09:00)
--- NOTE | 2016-08-27 09:51 | CP.PCM.DIS ---
Provider - Provider Date of Admission: 08/26/16 18:07 Attending physician: Beverly Eduardo MD Primary care physician: Shavonne Blanco MD Time Spent in preparation of Discharge (in minutes): 30 Diagnosis - Discharge Diagnosis (1) Chest pain Status: Resolved Priority: Low Hospital Course - Lab Results Lab Results: Most Recent Lab Values WBC 10.5 K/uL (4.8-10.8) 08/26/16 14:59 RBC 5.11 Mil/uL (4.40-5.90) 08/26/16 14:59 Hgb 14.1 g/dL (12.0-18.0) 08/26/16 14:59 Hct 42.5 % (35.0-51.0) 08/26/16 14:59 MCV 83.2 fl (80.0-94.0) 08/26/16 14:59 MCH 27.6 pg (27.0-31.0) 08/26/16 14:59 MCHC 33.1 g/dL (33.0-37.0) 08/26/16 14:59 RDW 13.1 % (11.5-14.5) 08/26/16 14:59 Plt Count 227 K/uL (130-400) 08/26/16 14:59 MPV 8.4 fl (7.2-11.7) 08/26/16 14:59 Neut % (Auto) 81.7 % (50.0-75.0) H 08/26/16 14:59 Lymph % (Auto) 10.3 % (20.0-40.0) L 08/26/16 14:59 [place] % (Auto) 6.9 % (0.0-10.0) 08/26/16 14:59 Eos % (Auto) 0.3 % (0.0-4.0) 08/26/16 14:59 Baso % (Auto) 0.8 % (0.0-2.0) 08/26/16 14:59 Neut # 8.6 K/uL (1.8-7.0) H 08/26/16 14:59 Lymph # 1.1 K/uL (1.0-4.3) 08/26/16 14:59 [place] # 0.7 K/uL (0.0-0.8) 08/26/16 14:59 Eos # 0.0 K/uL (0.0-0.7) 08/26/16 14:59 Baso # 0.1 K/uL (0.0-0.2) 08/26/16 14:59 PT 12.3 Seconds (9.8-13.1) 08/26/16 14:59 INR 1.1 (0.9-1.2) 08/26/16 14:59 APTT 33.1 Seconds (25.6-37.1) 08/26/16 14:59 Sodium 141 mmol/l (132-148) 08/26/16 14:59 Potassium 4.5 MMOL/L (3.6-5.0) 08/26/16 14:59 Chloride 103 mmol/L (98-107) 08/26/16 14:59 Carbon Dioxide 27 mmol/L (22-30) 08/26/16 14:59 Anion Gap 15 (10-20) 08/26/16 14:59 BUN 16 mg/dl (9-20) 08/26/16 14:59 Creatinine 0.9 mg/dL (0.8-1.5) 08/26/16 14:59 Est GFR ( Amer) > 60 08/26/16 14:59 Est GFR (Non-Af Amer) > 60 08/26/16 14:59 Random Glucose 83 mg/dL (75-110) 08/26/16 14:59 Calcium 9.6 mg/dL (8.4-10.2) 08/26/16 14:59 Total Bilirubin 0.9 mg/dl (0.2-1.3) 08/26/16 14:59 AST 46 U/L (17-59) 08/26/16 14:59 ALT 56 U/L (21-72) 08/26/16 14:59 Alkaline Phosphatase 71 U/L (38-126) 08/26/16 14:59 Troponin I < 0.0120 ng/mL (0.00-0.120) 08/27/16 05:00 Total Protein 8.5 G/DL (6.3-8.2) H 08/26/16 14:59 Albumin 4.6 g/dL (3.5-5.0) 08/26/16 14:59 Globulin 3.9 gm/dL (2.2-3.9) 08/26/16 14:59 Albumin/Globulin Ratio 1.2 (1.0-2.1) 08/26/16 14:59 Urine Color Yellow (YELLOW) 08/26/16 15:00 Urine Clarity Clear (Clear) 08/26/16 15:00 Urine pH 6.0 (5.0-8.0) 08/26/16 15:00 Ur Specific [place] 1.015 (1.003-1.030) 08/26/16 15:00 Urine Protein Negative mg/dL (NEGATIVE) 08/26/16 15:00 Urine Glucose (UA) Neg mg/dL (Normal) 08/26/16 15:00 Urine Ketones Negative mg/dL (NEGATIVE) 08/26/16 15:00 Urine Blood Negative (NEGATIVE) 08/26/16 15:00 Urine Nitrate Negative (NEGATIVE) 08/26/16 15:00 Urine Bilirubin Negative (NEGATIVE) 08/26/16 15:00 Urine Urobilinogen 0.2-1.0 mg/dL (0.2-1.0) 08/26/16 15:00 Ur Leukocyte Esterase Neg Som/uL (Negative) 08/26/16 15:00 Urine Microscopic WBC < 1 /hpf (0-5) 08/26/16 15:00 Ur Squamous Epith Cells < 1 /hpf (0-5) 08/26/16 15:00 - Hospital Course Hospital Course: 50 yr old M admitted for chest pain with PMHx of aortic dilatation with associated intermittent dizziness and syncope. Acute coronary syndrome was ruled out as symptoms resolved, EKG showed NSR, troponins were negative x 3, CXR showed mild biapical pleural thickening and parenchymal scarring, Chest CT was negative for PE, stable ascending thoracic aorta size with stable bilateral pulmonary nodules. Patient has appt at [facility] with Dr. Blanco, is scheduled for Holter monitor to be placed next week, has referral for stress test, was referred table tilt test. ER precautions were reviewed. - Date & Time of H&P Date of H&P: 08/26/16 Time of H&P: 18:57 Discharge Exam - Head Exam Head Exam: ATRAUMATIC, NORMOCEPHALIC - Eye Exam Eye Exam: EOMI, PERRL - ENT Exam ENT Exam: Mucous Membranes Moist - Neck Exam Neck exam: Full Rom - Respiratory Exam Respiratory Exam: Clear to PA & Lateral, NORMAL BREATHING PATTERN - Cardiovascular Exam Cardiovascular Exam: REGULAR RHYTHM, +S1, +S2 - GI/Abdominal Exam GI & Abdominal Exam: Normal Bowel Sounds, Soft. absent: Distended, Tenderness - Extremities Exam Extremities exam: full ROM (no calf tenderness, no pedal edema) - Back Exam Back exam: absent: CVA tenderness (L), CVA tenderness (R) - Neurological Exam Neurological exam: Alert, CN II-XII Intact, Oriented x3 - Psychiatric Exam Psychiatric exam: Normal Affect, Normal Mood - Skin Skin Exam: Dry, Intact, Normal Color, Warm Discharge Plan - Follow Up Plan Condition: GOOD Disposition: HOME/ ROUTINE Patient education suggested?: Yes Instructions: Syncope (DC), Near Syncope (ED) Additional Instructions: -Follow up at [facility] with Dr. Blanco friday. 2016 at 10:40am -Go for Holter monitor as scheduled, Stress test and recommended outpatient Table tilt test -Follow up with Dr. Loredo -cardiology -ER precautions reviewed Referrals: Shavonne Blanco MD [Primary Care Provider] - Ariel Loredo MD [Staff Provider] - Clinical Quality Measures - Date & Time of Discharge Summary Date of Discharge Summary: 08/27/16 Time of Discharge Summary: 10:21
[2016-08-27 10:47] VITALS: O2SAT 98
== END 2016-08-27 12:11 | disposition home or self-care (01) ==
LOC: H.ER 13:55 → H.ERHOLD 18:07 → H.TEL 21:09
PROVIDERS: ADMIT Family Medicine Geriatric Medicine; ATTEND Family Medicine Geriatric Medicine
DX: R07.89 Other chest pain (principal); J44.9 Chronic obstructive pulmonary disease, unspecified; R51 Headache

== ENCOUNTER 2016-09-17 12:01 | Emergency (ER) | payer SELFPAY ==
[2016-09-17 12:10] VITALS: BMI 21.7
[2016-09-17 12:11] VITALS: BP 117/76; PULSE 84; RESP 18; TEMP 98.1; O2SAT 99
[2016-09-17] MEDS ORDERED: Sodium Chloride 0.9% 1,000 ML IV STA (12:59)
--- NOTE | 2016-09-17 13:30 | ED PDOC ---
Syncope/Near Syncope/Dizziness Time Seen by Provider: 09/17/16 12:45 Chief Complaint (Nursing): Dizziness/Lightheaded Chief Complaint (Provider): dizziness History Per: Patient History/Exam Limitations: no limitations Onset/Duration Of Symptoms: Days (x 1) Current Symptoms Are (Timing): Still Present Additional Complaint(s): Paul Green is a 50 year old male, with a previous medical history of asthma , who presents to the ED with complaints of dizziness associated with nausea and mild headache ongoing for 1 day. He denies any chest pain, shortness of breath, vomiting, neck pain, numbness or abdominal pain. Patient reports symptoms are consistent with that of previous symptoms where he was seen in the ED for multiple times in the past. He reports tingling to the left forearm which is intermittently ongoing chronically. Not worst headache of his life. Dizziness only on moving. When sitting still, no issues. No vision changes. PMD: none provided Past Medical History Reviewed: Historical Data, Nursing Documentation, Vital Signs Vital Signs: Last Vital Signs Temp 98.1 F 09/17/16 12:10 Pulse 84 09/17/16 12:10 Resp 18 09/17/16 12:10 BP 117/76 09/17/16 12:10 Pulse Ox 99 09/17/16 12:10 - Medical History PMH: Asthma, Bronchitis, Cardiac Aneurysm Denies: HIV, Chronic Kidney Disease Other PMH: Dizziness; Aneurysm - Surgical History Surgical History: Hernia Repair - Family History Family History: States: Unknown Family Hx, Hypertension (mother) - Social History Alcohol: None Drugs: Denies - Immunization History Hx Tetanus Toxoid Vaccination: No - Home Medications Home Medications: Ambulatory Orders Medication Instructions Recorded Meclizine [Antivert] 12.5 mg PO BID PRN 5 Days 09/17/16 - Allergies Allergies/Adverse Reactions: Allergies Allergy/AdvReac Type Severity Reaction Status Date / Time No Known Allergies Allergy Verified 06/12/16 12:38 Review of Systems ROS Statement: Except As Marked, All Systems Reviewed And Found Negative Cardiovascular: Negative for: Chest Pain Respiratory: Negative for: Cough, Shortness of Breath Gastrointestinal: Positive for: Nausea. Negative for: Vomiting, Abdominal Pain , Diarrhea Neurological: Positive for: Headache, Dizziness Physical Exam - Reviewed Nursing Documentation Reviewed: Yes Vital Signs Reviewed: Yes - Physical Exam Appears: Positive for: Non-toxic, No Acute Distress Head Exam: Positive for: ATRAUMATIC, NORMAL INSPECTION, NORMOCEPHALIC Skin: Positive for: Normal Color, Warm, DRY Eye Exam: Positive for: EOMI, Normal appearance, PERRL ENT: Positive for: Normal ENT Inspection Neck: Positive for: Normal, Painless ROM Cardiovascular/Chest: Positive for: Regular Rate, Rhythm Respiratory: Positive for: CNT, Normal Breath Sounds Gastrointestinal/Abdominal: Positive for: Normal Exam, Bowel Sounds, Soft. Negative for: Tenderness Back: Positive for: Normal Inspection. Negative for: L CVA Tenderness, R CVA Tenderness Extremity: Positive for: Normal ROM. Negative for: Tenderness, Pedal Edema Neurologic/Psych: Positive for: Alert, rail equipment operator II-XII (intact), Oriented. Negative for: Motor/Sensory Deficits, Facial Droop - Laboratory Results Result Diagrams: 09/17/16 13:54 09/17/16 13:54 Interpretation Of Abn Labs: no acute - ECG ECG: Positive for: Interpreted By Me, Viewed By Me ECG Rhythm: Positive for: Normal QRS, Normal ST Segment, Sinus Rhythm Interpretation Of Abn EKG: same as old O2 Sat by Pulse Oximetry: 99 (RA) Pulse Ox Interpretation: Normal - Progress ED Course And Treament: 1521: Had MRI brain 06/02 with no findings. Had recent admit and holter with no acute findings. Has been scheduled for tilt test and stress in few days. Dizziness on going for a long time and being worked up for it. Currently asymptomatic. Ambulating with no issues. Tolerated PO. Medical Decision Making Medical Decision Making: Initial Impression: Dizziness Evaluation Initial Plan: * Troponin I * EKG * labs * Antivert 25 mg PO * IV NS 1,000 ml at 1,000 ml/hr * reevaluation 08/26/16 CT angio FINDINGS: Pulmonary arteries: No pulmonary embolism. Aorta: The ascending thoracic aorta measures 4.4 cm, unchanged from prior examination. The descending thoracic aorta is unremarkable. Lungs: Biapical scarring. Nodular pleural thickening is identified bilaterally. Bronchiectasis is noted within the right middle lobe, unchanged. 6 mm nodule within the right middle lobe (series 5, image 55) stable from prior examination. Stable pleural based 7 mm nodule within the left lower lobe (series 5, image 59). No discrete mass. No consolidation. Pleural spaces: As above. Heart: No cardiomegaly. No significant pericardial effusion. No evidence of right heart dysfunction. Bones: No acute fracture. Lymph nodes: No pathologically enlarged lymph nodes. Within the upper abdomen: The gallbladder is decompressed. Stable 11 mm focus of decreased attenuation within the posterior limb of the right adrenal gland, unchanged dating back to 2016. IMPRESSION: No pulmonary embolism. Nodular pleural thickening with right middle lobe bronchiectasis. Stable ascending thoracic aorta size. Stable bilateral pulmonary nodules. 08/26/16 CXR FINDINGS: LUNGS: Mild biapical pleural thickening and adjacent parenchymal scarring. PLEURA: No significant pleural effusion identified. No pneumothorax apparent. CARDIOVASCULAR: Normal. OSSEOUS STRUCTURES: No significant abnormalities. . Probable mild pectus excavatum deformity. VISUALIZED UPPER ABDOMEN: Normal. OTHER FINDINGS: Mild biapical pleural thickening and parenchymal IMPRESSION: Mild biapical pleural thickening and parenchymal scarring Scribe Attestation: Documented by Alicja Crum, acting as a scribe for Po Woods MD. Provider Scribe Attestation: All medical record entries made by the Scribe were at my direction and personally dictated by me. I have reviewed the chart and agree that the record accurately reflects my personal performance of the history, physical exam, medical decision making, and the department course for this patient. I have also personally directed, reviewed, and agree with the discharge instructions and disposition. Disposition - Clinical Impression Clinical Impression: Dizziness - Patient ED Disposition Is Patient to be Admitted: No Counseled Patient/Family Regarding: Studies Performed, Diagnosis, Need For Followup, Rx Given - Disposition Referrals: [facility] [Outside] - 09/18/16 Disposition: Routine/Home Disposition Time: 15:31 Condition: STABLE Additional Instructions: Return if not better in 3 days. Prescriptions: Meclizine [Antivert] 12.5 mg PO BID PRN 5 Days PRN Reason: Dizziness Instructions: Dizziness (ED) Forms: [employer] (Mexican) - POA Present On Arrival: None
[2016-09-17 14:03] LABS: BASO # 0.1 K/uL (0.0-0.2); BASO % 0.6 % (0.0-2.0); EOS # 0.1 K/uL (0.0-0.7); EOS % 0.7 % (0.0-4.0); HEMATOCRIT 40.4 % (35.0-51.0); LYMPH # 1.5 K/uL (1.0-4.3); MEAN CELL VOLUME 83.2 fl (80.0-94.0); MEAN CORPUSCULAR HEMOGLOBIN 27.9 pg (27.0-31.0); MEAN CORPUSCULAR HGB CONC 33.5 g/dL (33.0-37.0); MEAN PLATELET VOLUME 8.3 fl (7.2-11.7); MONO # 0.9 K/uL (0.0-0.8); MONO % 7.9 % (0.0-10.0); NEUT # 8.3 K/uL (1.8-7.0); NEUT % 76.8 % (50.0-75.0); RED CELL DISTRIBUTION WIDTH 13.2 % (11.5-14.5); WHITE BLOOD COUNT 10.8 K/uL (4.8-10.8)
[2016-09-17 14:10] LABS: ALB/GLOB RATIO 1.4 (1.0-2.1); ALKALINE PHOSPHATASE 61 U/L (38-126); ALT/SGPT 44 U/L (21-72); AST/SGOT 29 U/L (17-59); BILIRUBIN,TOTAL 0.9 mg/dl (0.2-1.3); BLOOD UREA NITROGEN 14 mg/dl (9-20); CALCIUM 9.4 mg/dL (8.4-10.2); CARBON DIOXIDE 30 mmol/L (22-30); CHLORIDE 102 mmol/L (98-107); GFR AFRICAN-AMERICAN > 60; GLUCOSE,RANDOM 77 mg/dL (75-110); POTASSIUM 4.1 MMOL/L (3.6-5.0); SODIUM 140 mmol/l (132-148); TOTAL PROTEIN 7.5 G/DL (6.3-8.2)
--- NOTE | 2016-09-18 18:01 | CARD ---
APPROVED REPORT EKG Measurement Heart [id number] <Conclusion> Normal sinus rhythm Possible Left atrial enlargement Borderline ECG
== END 2016-09-17 16:07 | disposition home or self-care (01) ==
LOC: H.ER 12:01
DX: R42 Dizziness and giddiness (principal); J45.909 Unspecified asthma, uncomplicated

== ENCOUNTER 2017-11-21 08:33 | Observation (INO) | payer SELFPAY ==
[2017-11-21 08:40] VITALS: BMI 22.6
[2017-11-21] MEDS ORDERED: Sodium Chloride 0.9% 1,000 ML IV STA (09:26)
[2017-11-21] MEDS ORDERED: Nitroglycerin 2% 15 INCH/30 GM TUBE TOP STA (09:29)
[2017-11-21] MEDS ORDERED: Nitroglycerin 2% Ointment Foilpak UD TOP ONE (10:03)
--- NOTE | 2017-11-21 10:05 | ED PDOC ---
HPI: Chest Pain Time Seen by Provider: 11/21/17 09:04 Chief Complaint (Nursing): Chest Pain Chief Complaint (Provider): Chest Pain History Per: Patient History/Exam Limitations: no limitations Onset/Duration Of Symptoms: Hrs Quality: Pressure Associated Symptoms: Nausea Additional Complaint(s): 52 years old male with history of asthma, bronchitis and aortic aneurysm presents to ER for evaluation of pressured chest pain associated with shortness of breath and nausea onset this morning. Patient reports pain worsens with laying down and it has been intermittent for the past 2.5 weeks but worsened today. He states he took Midodrine HCl with no improvement. Patient reports he has the usual cough he has due to bronchitis. He denies fever or taking any anticoagulant medications. PMD: Shavonne Blanco Past Medical History Reviewed: Historical Data, Nursing Documentation, Vital Signs Vital Signs: Last Vital Signs Temp 98.5 F 11/21/17 08:40 Pulse 105 H 11/21/17 08:40 Resp 17 11/21/17 08:40 BP 128/85 11/21/17 08:40 Pulse Ox 100 11/21/17 08:40 - Medical History PMH: Asthma, Bronchitis, Cardiac Aneurysm Denies: HIV, Chronic Kidney Disease - Surgical History Surgical History: Hernia Repair - Family History Family History: States: Unknown Family Hx, Hypertension (mother) - Social History Current smoker - smoking cessation education provided: No Alcohol: None Drugs: Denies - Immunization History Hx Tetanus Toxoid Vaccination: No - Home Medications Home Medications: Ambulatory Orders Medication Instructions Recorded Midodrine HCl 2.5 mg PO TID 11/21/17 - Allergies Allergies/Adverse Reactions: Allergies Allergy/AdvReac Type Severity Reaction Status Date / Time No Known Allergies Allergy Verified 11/21/17 08:54 Review of Systems ROS Statement: Except As Marked, All Systems Reviewed And Found Negative Constitutional: Negative for: Fever Cardiovascular: Positive for: Chest Pain Respiratory: Positive for: Cough, Shortness of Breath Gastrointestinal: Positive for: Nausea Physical Exam - Reviewed Nursing Documentation Reviewed: Yes Vital Signs Reviewed: Yes - Physical Exam Appears: Positive for: Non-toxic, No Acute Distress Neck: Positive for: Normal (No JVD), Supple Cardiovascular/Chest: Positive for: Regular Rate, Rhythm, Tachycardia (at 110) Respiratory: Positive for: Normal Breath Sounds. Negative for: Wheezing Gastrointestinal/Abdominal: Positive for: Tenderness (Diffused) Back: Positive for: Normal Inspection. Negative for: L CVA Tenderness, R CVA Tenderness Extremity: Positive for: Normal ROM, Other (negative mitch's sign). Negative for: Calf Tenderness (or swelling), Swelling Neurologic/Psych: Positive for: Alert, Oriented (x3) - Laboratory Results Result Diagrams: 11/21/17 10:16 11/21/17 10:45 - ECG O2 Sat by Pulse Oximetry: 100 (RA) Pulse Ox Interpretation: Normal Medical Decision Making Medical Decision Making: Time: 923 Initial Plan: --EKG --CMP --Troponin --CBC --D Dimer --PT --Chest x-ray --Aspirin 163 mg PO --NaCl 1,000 ml --Nitro-Bid 2% 1 inch TOP --Tylenol 325 mg PO 1038 Chest x-ray FINDINGS: LUNGS: Clear. PLEURA: No pneumothorax or pleural fluid seen. CARDIOVASCULAR: Normal. OSSEOUS STRUCTURES: No significant abnormalities. VISUALIZED UPPER ABDOMEN: Normal. OTHER FINDINGS: None. IMPRESSION: No active disease. ---- - Scribe Attestation: Documented by Debora Looney, acting as a scribe for Ileana Talbert MD. Provider Scribe Attestation: All medical record entries made by the Scribe were at my direction and personally dictated by me. I have reviewed the chart and agree that the record accurately reflects my personal performance of the history, physical exam, medical decision making, and the department course for this patient. I have also personally directed, reviewed, and agree with the discharge instructions and disposition. Patient became diaphoretic and had near syncope episode while the blood work and IV insertion took place. patient feels better. His WBC is markedly elevated. Will observe patient on telemetry Disposition - Clinical Impression Clinical Impression: Acute chest pain, Dizziness, Dyspnea - Patient ED Disposition Is Patient to be Admitted: Yes Doctor Will See Patient In The: Hospital - Disposition Disposition: Transfer of Care Disposition Time: 12:06 Condition: FAIR Forms: [facility] [employer] [facility] (Faroese) - Pt Status Changed To: Hospital Disposition Of: Observation - POA Present On Arrival: None
[2017-11-21 10:38] LABS: BASO % 0.1 % (0.0-2.0); EOS % 0.1 % (0.0-4.0); HEMOGLOBIN 15.7 g/dL (12.0-18.0); LYMPH # 0.3 K/uL (1.0-4.3); LYMPH % 1.6 % (20.0-40.0); MEAN CORPUSCULAR HGB CONC 33.3 g/dL (33.0-37.0); MEAN PLATELET VOLUME 8.7 fl (7.2-11.7); MONO # 0.8 K/uL (0.0-0.8); MONO % 4.4 % (0.0-10.0); NEUT # 17.9 K/uL (1.8-7.0); NEUT % 93.8 % (50.0-75.0); PLATELET COUNT 228 K/uL (130-400); RBC 5.59 Mil/uL (4.40-5.90); RED CELL DISTRIBUTION WIDTH 13.4 % (11.5-14.5); WHITE BLOOD COUNT 19.1 K/uL (4.8-10.8)
--- NOTE | 2017-11-21 10:40 | RAD ---
Date of service: 11/21/2017 PROCEDURE: CHEST RADIOGRAPH, 1 VIEW HISTORY: CHEST PAIN COMPARISON: 08/26/2016 FINDINGS: LUNGS: Clear. PLEURA: No pneumothorax or pleural fluid seen. CARDIOVASCULAR: Normal. OSSEOUS STRUCTURES: No significant abnormalities. VISUALIZED UPPER ABDOMEN: Normal. OTHER FINDINGS: None. IMPRESSION: No active disease.
[2017-11-21] MEDS ORDERED: Nitroglycerin 2% Ointment Foilpak UD TOP STA (10:52)
[2017-11-21 11:08] LABS: INR 1.2; PROTHROMBIN TIME 13.1 Seconds (9.8-13.1)
[2017-11-21 11:10] LABS: ALB/GLOB RATIO 1.2 (1.0-2.1); ALBUMIN 4.2 g/dL (3.5-5.0); ALT/SGPT 44 U/L (21-72); AST/SGOT 35 U/L (17-59); BLOOD UREA NITROGEN 18 mg/dl (9-20); CALCIUM 9.1 mg/dL (8.4-10.2); GFR NON-AFRICAN AMERICAN > 60
[2017-11-21 11:21] LABS: D DIMER < 200 ng/mlDDU (0-230)
[2017-11-21 12:59] LABS: LYMPHOCYTE 4 % (20-50); MONOCYTE 4 % (0-10); TOTAL CELLS COUNTED 100
[2017-11-21 13:03] LABS: NEUTROPHIL 92 % (42-75)
[2017-11-21 13:22] LABS: PLATELET ESTIMATE NORMAL (NORMAL)
[2017-11-21] MEDS ORDERED: Iohexol 300 100 ML IJ ONE (14:04)
[2017-11-21] MEDS ORDERED: Sodium Chloride 0.9% 50 ML IV ONE (14:04)
[2017-11-21] MEDS ORDERED: Iodixanol 320 MG/ML 100 ML BOTTLE IV ONE (14:14)
--- NOTE | 2017-11-21 14:41 | CARD ---
APPROVED REPORT Date of service: 11/21/2017 EKG Measurement Heart [id number] <Conclusion> Normal sinus rhythm Normal Electrocardiogram
--- NOTE | 2017-11-21 15:32 | CP.PCM.HP ---
Addendum entered and electronically signed by Ashlyn Baum MD 11/21/17 19:23: Patient was seen and examined bedside. history obtained , physical exam performed and all laboratory and imaging data reviewed. Agree with resident assessment and plan CTA chest showed no dissection , no PE ,some right upper lobe fissure thickening Trop x 2 negative EKG showed no ST-T wave changes Started on Rocephin and Zithro IV for possible right upper lobe infiltrate that was seen on CT. Given official readings of pleural thickening that has been there since 2017 will consider discontinuing antibiotics in Am if WBC is trending down Continue tele observation resume midodrine Original Note: History of Present Illness - History of Present Illness History of Present Illness: 52 yo male with pmhx of asthma, bronchitis, ascending aortic root dilation, and vasovagal syncope presents today to the ED with chest pain associated with shortness of breath and nausea. Patient is AAOx3 and NAD currently. States that for the past 2 and a half weeks he has been having minor chest pain that has been random and going away but that today he went into work and felt an onset of the pain and tried to control with maneuvers. As it went on it only got worse and he felt as if he would pass out. He states that he used to have these onsets in the past but this morning was the worst it has ever been. Reports feelings of burning and shocks up his neck to his head. Upon presentation to the ED he p assed out on the stretcher for a brief period. States that his blood pressure has never been this high. States he sees Dr. Blanco and he has not had these symptoms in about a year. States he takes medication that has been helping with the syncopal episodes. States that he has a chronic cough because of his bronchitis. He denies fever and chills today. PMD: Shavonne Blanco PMHx: bronchitis, ascending aortic root dilation, vasovagal syncope PSHx: hernia repair SH: denies smoking, drinking, recreational drug use FH: mother - hypertension Present on Admission - Present on Admission Any Indicators Present on Admission: No Review of Systems - Constitutional Constitutional: As Per HPI - Cardiovascular Cardiovascular: As Per HPI - Respiratory Respiratory: Cough Past Patient History - Past Medical History & Family History Past Medical History?: Yes - Past Social History Alcohol: None Drugs: Denies - CARDIAC Other/Comment: Neurocardiogenic syncopy, dilated aorta. - PULMONARY Hx Asthma: Yes Hx Bronchitis: Yes - NEUROLOGICAL Hx Neurological Disorder: No - HEENT Hx HEENT Problems: No - RENAL Hx Chronic Kidney Disease: No - ENDOCRINE/METABOLIC Hx Endocrine Disorders: No - HEMATOLOGICAL/ONCOLOGICAL Hx Human Immunodeficiency Virus (HIV): No - INTEGUMENTARY Hx Dermatological Problems: No - MUSCULOSKELETAL/RHEUMATOLOGICAL Hx Falls: Yes (1x) - GASTROINTESTINAL Hx Gastrointestinal Disorders: Yes Hx Colitis: Yes - GENITOURINARY/GYNECOLOGICAL Hx Genitourinary Disorders: No - PSYCHIATRIC Hx Emotional Abuse: No Hx Physical Abuse: No Hx Substance Use: No - SURGICAL HISTORY Hx Herniorrhaphy: Yes (ROSIE. INGUINAL) - ANESTHESIA Hx Anesthesia: Yes Hx Anesthesia Reactions: No Hx Malignant Hyperthermia: No Meds Allergies/Adverse Reactions: Allergies Allergy/AdvReac Type Severity Reaction Status Date / Time No Known Allergies Allergy Verified 11/21/17 08:54 Physical Exam - Constitutional Appears: Well, Non-toxic, No Acute Distress - Head Exam Head Exam: ATRAUMATIC, NORMOCEPHALIC - Eye Exam Eye Exam: EOMI, Normal appearance - ENT Exam ENT Exam: Mucous Membranes Moist, Normal Exam - Neck Exam Neck exam: Negative for: Lymphadenopathy - Respiratory Exam Respiratory Exam: NORMAL BREATHING PATTERN - Cardiovascular Exam Cardiovascular Exam: REGULAR RHYTHM, +S1, +S2 - GI/Abdominal Exam GI & Abdominal Exam: Normal Bowel Sounds, Soft - Extremities Exam Extremities exam: Positive for: normal capillary refill, normal inspection - Neurological Exam Neurological exam: Alert, Oriented x3 - Psychiatric Exam Psychiatric exam: Normal Affect, Normal Mood - Skin Skin Exam: Dry, Intact, Normal Color, Warm Results - Vital Signs Recent Vital Signs: Last Vital Signs Temp 98.5 F 11/21/17 08:40 Pulse 108 H 11/21/17 14:00 Resp 17 11/21/17 14:00 BP 141/82 11/21/17 15:12 Pulse Ox 99 11/21/17 14:00 - Labs Result Diagrams: 11/21/17 10:16 11/21/17 10:45 Labs: Laboratory Results - last 24 hr 11/21/17 11/21/17 11/21/17 10:16 10:45 10:55 WBC 19.1 H D RBC 5.59 Hgb 15.7 D Hct 47.0 MCV 84.0 MCH 28.0 MCHC 33.3 RDW 13.4 Plt Count 228 MPV 8.7 Neut % (Auto) 93.8 H Lymph % (Auto) 1.6 L [place] % (Auto) 4.4 Eos % (Auto) 0.1 Baso % (Auto) 0.1 Neut # (Auto) 17.9 H Lymph # (Auto) 0.3 L [place] # (Auto) 0.8 Eos # (Auto) 0.0 Baso # (Auto) 0.0 Neutrophils % (Manual) 92 H Lymphocytes % (Manual) 4 L Monocytes % (Manual) 4 Platelet Estimate Normal PT 13.1 INR 1.2 APTT 28.0 D-Dimer, Quantitative < 200 Sodium 140 Potassium 4.1 Chloride 106 Carbon Dioxide 26 Anion Gap 12 BUN 18 Creatinine 0.8 Est GFR ( Amer) > 60 Est GFR (Non-Af Amer) > 60 Random Glucose 115 H Calcium 9.1 Total Bilirubin 0.8 AST 35 ALT 44 Alkaline Phosphatase 76 Troponin I < 0.0120 Total Protein 7.7 Albumin 4.2 Globulin 3.5 Albumin/Globulin Ratio 1.2 Assessment & Plan - Assessment and Plan (Free Text) Assessment: 52 yo male with pmhx of aortic root dilation, bronchitis, and vasovagal syncope is admitted for chest pain Plan: 1. chest pain with associated shortness of breath, nausea, and dizziness, r/o ACS - EKG ordered - wnl - tropinin ordered - negative x1 - CXR - no active disease - Chest CTA - taken, results pending - f/u serial troponins - f/u AM EKG 2. Leukocytosis - reactive vs infectious etiology - f/u with vbg, shock panel, blood cx, UA - abx started - azithromycin 500mg, ceftriaxone 1gm 3. hx of dilated aortic root aneurysm - f/u chest CTA 4. DVT prophylaxis - lovenox 40mg daily - Date & Time Date: 11/21/17 Time: 15:37
[2017-11-21] MEDS ORDERED: Azithromycin 500 MG in Sodium Chloride 0.9% 250 ML IVPB STA (15:41)
[2017-11-21] MEDS ORDERED: Azithromycin 500 MG in Sodium Chloride 0.9% 250 ML IVPB SCH (15:45)
--- NOTE | 2017-11-21 16:15 | CT ---
PROCEDURE: CT Angiography Chest, Abdomen and Pelvis with and without intravenous contrast HISTORY: chest pain radiating to back COMPARISON: CT angiography dissection protocol 05/14/[address] abdomen/pelvis 06/12/2016 TECHNIQUE: Contiguous axial images of the chest, abdomen and pelvis were obtained in the phase of aortic enhancement. A noncontrast enhanced CT of the chest was also obtained to evaluate for possible intramural thrombus. Coronal and sagittal reformats were generated. IV dose administered: 99 cc Visipaque 320 Radiation dose: Total exam DLP = 650.40 mGy-cm. This CT exam was performed using one or more of the following dose reduction techniques: Automated exposure control, adjustment of the mA and/or kV according to patient size, and/or use of iterative reconstruction technique. FINDINGS: CT ANGIOGRAPHY OF THE CHEST WITH & WITHOUT CONTRAST: AORTA (CHEST AND ABDOMEN): The thoracic and abdominal aorta are unremarkable, without aneurysm, dissection or rupture. No intramural thrombus identified in the thoracic aorta on the non-contrast ct of the chest. The celiac axis, superior mesenteric artery, inferior mesenteric artery and the renal arteries are widely patent. The pelvic arteries are unremarkable. LUNGS: No infiltrate. Focal pleural thickening versus perifissural nodule superior aspect of right major fissure. No change from 05/14/2016. Not suspicious for malignancy. No other pulmonary mass. Minimal linear pleural-based scar in the lingular segment of the left upper lobe. MEDIASTINUM: Unremarkable. Normal caliber aorta and pulmonary arterial trunk. No aortic dissection. Normal size heart. LYMPH NODES: Unremarkable. PLEURA: Unremarkable. No pneumothorax. No pleural fluid. BONES: Unremarkable. OTHER FINDINGS: None. CT ANGIOGRAPHY OF THE ABDOMEN AND PELVIS WITH CONTRAST: LIVER: Unremarkable. No gross lesion or ductal dilatation. GALLBLADDER AND BILE DUCTS: Unremarkable. PANCREAS: Unremarkable. No gross lesion or ductal dilatation. SPLEEN: Unremarkable. ADRENALS: Nonspecific right adrenal mass, 1.3 cm diameter. No change from prior CT. KIDNEYS AND URETERS: Unremarkable. No hydronephrosis. No solid mass. VASCULATURE: Unremarkable. No aortic aneurysm. STOMACH AND BOWEL: Sigmoid diverticulosis without evidence of diverticulitis. No other abnormal bowel loops. No bowel obstruction. APPENDIX: Normal appendix. PERITONEUM: Unremarkable. No free fluid. No free air. LYMPH NODES: Unremarkable. No enlarged lymph nodes. BLADDER: Unremarkable. REPRODUCTIVE: Normal prostate BONES: No acute fracture. OTHER FINDINGS: None. IMPRESSION: No evidence of thoracic or abdominal aortic dissection or aneurysm. No acute abnormality. Sigmoid diverticulosis without evidence of diverticulitis. No pulmonary infiltrate.
[2017-11-21 17:07] LABS: URINE BILIRUBIN NEGATIVE (NEGATIVE); URINE BLOOD NEGATIVE (NEGATIVE); URINE CLARITY CLEAR (Clear); URINE COLOR STRAW (YELLOW); URINE GLUCOSE (UA) NEG (Normal); URINE LEUKOCYTE ESTERASE NEG Leu/uL (Negative); URINE PROTEIN NEGATIVE (NEGATIVE); URINE UROBILINOGEN 0.2-1.0 mg/dL (0.2-1.0)
--- NOTE | 2017-11-22 05:56 | CP.PCM.DIS ---
<Shavonne Blanco - Last Filed: 11/22/17 10:54> Provider - Provider Date of Admission: 11/21/17 13:20 Attending physician: Ashlyn Baum MD Primary care physician: Yessica Blanco MD Time Spent in preparation of Discharge (in minutes): 30 Diagnosis - Discharge Diagnosis (1) Neurocardiogenic pre-syncope Status: Chronic Hospital Course - Lab Results Lab Results: Most Recent Lab Values WBC 19.1 K/uL (4.8-10.8) H D 11/21/17 10:16 RBC 5.59 Mil/uL (4.40-5.90) 11/21/17 10:16 Hgb 15.7 g/dL (12.0-18.0) D 11/21/17 10:16 Hct 47.0 % (35.0-51.0) 11/21/17 10:16 MCV 84.0 fl (80.0-94.0) 11/21/17 10:16 MCH 28.0 pg (27.0-31.0) 11/21/17 10:16 MCHC 33.3 g/dL (33.0-37.0) 11/21/17 10:16 RDW 13.4 % (11.5-14.5) 11/21/17 10:16 Plt Count 228 K/uL (130-400) 11/21/17 10:16 MPV 8.7 fl (7.2-11.7) 11/21/17 10:16 Neut % (Auto) 93.8 % (50.0-75.0) H 11/21/17 10:16 Lymph % (Auto) 1.6 % (20.0-40.0) L 11/21/17 10:16 [place] % (Auto) 4.4 % (0.0-10.0) 11/21/17 10:16 Eos % (Auto) 0.1 % (0.0-4.0) 11/21/17 10:16 Baso % (Auto) 0.1 % (0.0-2.0) 11/21/17 10:16 Neut # (Auto) 17.9 K/uL (1.8-7.0) H 11/21/17 10:16 Lymph # (Auto) 0.3 K/uL (1.0-4.3) L 11/21/17 10:16 [place] # (Auto) 0.8 K/uL (0.0-0.8) 11/21/17 10:16 Eos # (Auto) 0.0 K/uL (0.0-0.7) 11/21/17 10:16 Baso # (Auto) 0.0 K/uL (0.0-0.2) 11/21/17 10:16 Neutrophils % (Manual) 92 % (42-75) H 11/21/17 10:16 Lymphocytes % (Manual) 4 % (20-50) L 11/21/17 10:16 Monocytes % (Manual) 4 % (0-10) 11/21/17 10:16 Platelet Estimate Normal (NORMAL) 11/21/17 10:16 PT 13.1 Seconds (9.8-13.1) 11/21/17 10:55 INR 1.2 11/21/17 10:55 APTT 28.0 Seconds (25.6-37.1) 11/21/17 10:55 D-Dimer, Quantitative < 200 ng/mlDDU (0-230) 11/21/17 10:55 Sodium 140 mmol/l (132-148) 11/21/17 10:45 Potassium 4.1 MMOL/L (3.6-5.0) 11/21/17 10:45 Chloride 106 mmol/L (98-107) 11/21/17 10:45 Carbon Dioxide 26 mmol/L (22-30) 11/21/17 10:45 Anion Gap 12 (10-20) 11/21/17 10:45 BUN 18 mg/dl (9-20) 11/21/17 10:45 Creatinine 0.8 mg/dl (0.8-1.5) 11/21/17 10:45 Est GFR ( Amer) > 60 11/21/17 10:45 Est GFR (Non-Af Amer) > 60 11/21/17 10:45 Random Glucose 115 mg/dL (75-110) H 11/21/17 10:45 Calcium 9.1 mg/dL (8.4-10.2) 11/21/17 10:45 Total Bilirubin 0.8 mg/dl (0.2-1.3) 11/21/17 10:45 AST 35 U/L (17-59) 11/21/17 10:45 ALT 44 U/L (21-72) 11/21/17 10:45 Alkaline Phosphatase 76 U/L (38-126) 11/21/17 10:45 Troponin I < 0.0120 ng/mL (0.00-0.120) 11/21/17 17:30 Total Protein 7.7 G/DL (6.3-8.2) 11/21/17 10:45 Albumin 4.2 g/dL (3.5-5.0) 11/21/17 10:45 Globulin 3.5 gm/dL (2.2-3.9) 11/21/17 10:45 Albumin/Globulin Ratio 1.2 (1.0-2.1) 11/21/17 10:45 Procalcitonin 0.18 NG/ML (0.19-0.49) L 11/21/17 17:30 Urine Color Straw (YELLOW) 11/21/17 16:50 Urine Clarity Clear (Clear) 11/21/17 16:50 Urine pH 6.0 (5.0-8.0) 11/21/17 16:50 Ur Specific [place]ble 1.051 (1.003-1.030) H 11/21/17 16:50 Urine Protein Negative mg/dL (NEGATIVE) 11/21/17 16:50 Urine Glucose (UA) Neg mg/dL (Normal) 11/21/17 16:50 Urine Ketones Negative mg/dL (NEGATIVE) 11/21/17 16:50 Urine Blood Negative (NEGATIVE) 11/21/17 16:50 Urine Nitrate Negative (NEGATIVE) 11/21/17 16:50 Urine Bilirubin Negative (NEGATIVE) 11/21/17 16:50 Urine Urobilinogen 0.2-1.0 mg/dL (0.2-1.0) 11/21/17 16:50 Ur Leukocyte Esterase Neg Som/uL (Negative) 11/21/17 16:50 Urine RBC (Auto) 1 /hpf (0-3) 11/21/17 16:50 Urine Microscopic WBC 1 /hpf (0-5) 11/21/17 16:50 - Hospital Course Hospital Course: 52 YO M well known to [facility] w/ PMH of neurocardiogenic syncope and 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 Patient has had multiple similar ER visits however since being started on midrodine on diagnosis of neurocardiosyncope he has remained asymptomatic untill this episode. Hospital Course: 1) Chest Pain EKG: WNL no acute ischemic changes noted CXR: No active disease Chest CTA: No evidence of thoracic or abdominal aortic dissection or aneursym. No acute abnormalities. Sigmoid diverticulosis without evidence of diverticulitis. - Troponin x 3 negative - Repeat EKG WNL 2. Reactive Leucocytosis - On admission WBC 19 -Most likely reactive - Procalcitonin decreased - WBC trended down to 8 - CXR: No active disease - Chest CTA: No evidence of thoracic or abdominal aortic dissection or aneursym. No acute abnormalities. Sigmoid diverticulosis without evidence of diverticulitis. Discharge Exam - Head Exam Head Exam: ATRAUMATIC, NORMOCEPHALIC - Eye Exam Eye Exam: Normal appearance Pupil Exam: NORMAL ACCOMODATION - Respiratory Exam Respiratory Exam: Clear to PA & Lateral, NORMAL BREATHING PATTERN, UNREMARKABLE. absent: Rales, Rhonchi, Wheezes - Cardiovascular Exam Cardiovascular Exam: REGULAR RHYTHM, +S1, +S2 - GI/Abdominal Exam GI & Abdominal Exam: Normal Bowel Sounds. absent: Soft, Tenderness - Back Exam Back exam: absent: CVA tenderness (L), CVA tenderness (R) - Neurological Exam Neurological exam: Alert, CN II-XII Intact, Oriented x3 - Skin Skin Exam: Normal Color, Warm Discharge Plan - Follow Up Plan Condition: GOOD Disposition: HOME/ ROUTINE Patient education suggested?: Yes Instructions: Chest Pain, Syncope (Fainting) (DC) Additional Instructions: Please follow up in [facility] with your scheduled appointment with Dr. Blanco on Dec 08, 2017 with your scheduled appointment Referrals: Shavonne Blanco MD [Family Provider] - Ariel Loredo MD [Staff Provider] - <Ozzy Deleon D - Last Filed: 11/22/17 11:06> Provider - Provider Date of Admission: 11/21/17 13:20 Attending physician: Ashlyn Baum MD Hospital Course - Lab Results Lab Results: Most Recent Lab Values WBC 8.0 K/uL (4.8-10.8) D 11/22/17 10:00 RBC 4.90 Mil/uL (4.40-5.90) 10/06/18 10:00 Hgb 13.8 g/dL (12.0-18.0) 11/22/17 10:00 Hct 40.5 % (35.0-51.0) 11/22/17 10:00 MCV 82.6 fl (80.0-94.0) 11/22/17 10:00 MCH 28.0 pg (27.0-31.0) 11/22/17 10:00 MCHC 34.0 g/dL (33.0-37.0) 11/22/17 10:00 RDW 13.2 % (11.5-14.5) 11/22/17 10:00 Plt Count 181 K/uL (130-400) 11/22/17 10:00 MPV 8.0 fl (7.2-11.7) 11/22/17 10:00 Neut % (Auto) 74.9 % (50.0-75.0) 11/22/17 10:00 Lymph % (Auto) 13.8 % (20.0-40.0) L 11/22/17 10:00 [place] % (Auto) 10.4 % (0.0-10.0) H 11/22/17 10:00 Eos % (Auto) 0.5 % (0.0-4.0) 11/22/17 10:00 Baso % (Auto) 0.4 % (0.0-2.0) 11/22/17 10:00 Neut # (Auto) 6.0 K/uL (1.8-7.0) 11/22/17 10:00 Lymph # (Auto) 1.1 K/uL (1.0-4.3) 11/22/17 10:00 [place] # (Auto) 0.8 K/uL (0.0-0.8) 11/22/17 10:00 Eos # (Auto) 0.0 K/uL (0.0-0.7) 11/22/17 10:00 Baso # (Auto) 0.0 K/uL (0.0-0.2) 11/22/17 10:00 Neutrophils % (Manual) 92 % (42-75) H 11/21/17 10:16 Lymphocytes % (Manual) 4 % (20-50) L 11/21/17 10:16 Monocytes % (Manual) 4 % (0-10) 11/21/17 10:16 Platelet Estimate Normal (NORMAL) 11/21/17 10:16 PT 13.1 Seconds (9.8-13.1) 11/21/17 10:55 INR 1.2 11/21/17 10:55 APTT 28.0 Seconds (25.6-37.1) 11/21/17 10:55 D-Dimer, Quantitative < 200 ng/mlDDU (0-230) 11/21/17 10:55 Sodium 138 mmol/l (132-148) 11/22/17 05:40 Potassium 3.5 MMOL/L (3.6-5.0) L 11/22/17 05:40 Chloride 101 mmol/L (98-107) 11/22/17 05:40 Carbon Dioxide 26 mmol/L (22-30) 11/22/17 05:40 Anion Gap 15 (10-20) 11/22/17 05:40 BUN 12 mg/dl (9-20) 11/22/17 05:40 Creatinine 0.8 mg/dl (0.8-1.5) 11/22/17 05:40 Est GFR ( Amer) > 60 11/22/17 05:40 Est GFR (Non-Af Amer) > 60 11/22/17 05:40 Random Glucose 98 mg/dL (75-110) 11/22/17 05:40 Calcium 8.6 mg/dL (8.4-10.2) 11/22/17 05:40 Total Bilirubin 0.8 mg/dl (0.2-1.3) 11/22/17 05:40 AST 34 U/L (17-59) 11/22/17 05:40 ALT 42 U/L (21-72) 11/22/17 05:40 Alkaline Phosphatase 63 U/L (38-126) 11/22/17 05:40 Troponin I < 0.0120 ng/mL (0.00-0.120) 11/22/17 05:40 Total Protein 7.1 G/DL (6.3-8.2) 11/22/17 05:40 Albumin 3.9 g/dL (3.5-5.0) 11/22/17 05:40 Globulin 3.2 gm/dL (2.2-3.9) 11/22/17 05:40 Albumin/Globulin Ratio 1.2 (1.0-2.1) 11/22/17 05:40 Procalcitonin 0.18 NG/ML (0.19-0.49) L 11/21/17 17:30 Urine Color Straw (YELLOW) 11/21/17 16:50 Urine Clarity Clear (Clear) 11/21/17 16:50 Urine pH 6.0 (5.0-8.0) 11/21/17 16:50 Ur Specific [place] 1.051 (1.003-1.030) H 11/21/17 16:50 Urine Protein Negative mg/dL (NEGATIVE) 11/21/17 16:50 Urine Glucose (UA) Neg mg/dL (Normal) 11/21/17 16:50 Urine Ketones Negative mg/dL (NEGATIVE) 11/21/17 16:50 Urine Blood Negative (NEGATIVE) 11/21/17 16:50 Urine Nitrate Negative (NEGATIVE) 11/21/17 16:50 Urine Bilirubin Negative (NEGATIVE) 11/21/17 16:50 Urine Urobilinogen 0.2-1.0 mg/dL (0.2-1.0) 11/21/17 16:50 Ur Leukocyte Esterase Neg Som/uL (Negative) 11/21/17 16:50 Urine RBC (Auto) 1 /hpf (0-3) 11/21/17 16:50 Urine Microscopic WBC 1 /hpf (0-5) 11/21/17 16:50 Attending/Attestation - Attestation I have personally seen and examined this patient.: Yes I have fully participated in the care of the patient.: Yes I have reviewed all pertinent clinical information, including history, physical exam and plan: Yes
[2017-11-22 07:46] LABS: BLOOD UREA NITROGEN 12 mg/dl (9-20); GFR NON-AFRICAN AMERICAN > 60
[2017-11-22 07:47] LABS: ALB/GLOB RATIO 1.2 (1.0-2.1); ALBUMIN 3.9 g/dL (3.5-5.0); CALCIUM 8.6 mg/dL (8.4-10.2)
[2017-11-22 07:48] LABS: ALT/SGPT 42 U/L (21-72); AST/SGOT 34 U/L (17-59)
[2017-11-22 08:20] VITALS: BP 108/66; PULSE 88; RESP 16; TEMP 98.2; O2SAT 97
[2017-11-22] MEDS ORDERED: Enoxaparin 40 mg Syringe SC SCH (09:00)
[2017-11-22 10:11] LABS: BASO % 0.4 % (0.0-2.0); EOS % 0.5 % (0.0-4.0); HEMOGLOBIN 13.8 g/dL (12.0-18.0); LYMPH # 1.1 K/uL (1.0-4.3); LYMPH % 13.8 % (20.0-40.0); MEAN CELL VOLUME 82.6 fl (80.0-94.0); MONO # 0.8 K/uL (0.0-0.8); MONO % 10.4 % (0.0-10.0); NEUT % 74.9 % (50.0-75.0); NRBC % 0.2 % (0.0-0.0); RBC 4.9 Mil/uL (4.40-5.90); RED CELL DISTRIBUTION WIDTH 13.2 % (11.5-14.5)
[2017-11-22] MEDS ORDERED: Influenza Vaccine (5 YR UP)/PF 60 MCG/0.5 ML SYR IM ONE (15:00)
[2017-11-22] MEDS ORDERED: Azithromycin 500 MG in Sodium Chloride 0.9% 250 ML IVPB SCH (20:00)
== END 2017-11-22 11:55 | disposition home or self-care (01) ==
LOC: H.ER 08:33 → H.ERHOLD 13:20 → H.TEL 17:41
PROVIDERS: ADMIT Hospitalist; ATTEND Hospitalist
DX: R07.89 Other chest pain (principal); K57.30 Diverticulosis of large intestine without perforation or abscess without bleeding; Z82.49 Family history of ischemic heart disease and other diseases of the circulatory system; I77.810 Thoracic aortic ectasia; K52.9 Noninfective gastroenteritis and colitis, unspecified; R61 Generalized hyperhidrosis; D72.828 Other elevated white blood cell count; J45.909 Unspecified asthma, uncomplicated; I25.3 Aneurysm of heart
CPT/HCPCS: 36415; 71045; 71275; 74174; 80053; 81003; 84145; 84484; 85025; 85378; 85610; 85730; 87040; 87086; 93005; 96365; 99285; G0378; J0456; J0696; J7030; Q9967

== ENCOUNTER 2018-07-02 20:37 | Emergency (ER) | payer SELFPAY ==
[2018-07-02 20:37] VITALS: BMI 22.6
--- NOTE | 2018-07-02 22:38 | ED PDOC ---
HPI: Back Time Seen by Provider: 07/02/18 21:50 Chief Complaint (Nursing): Back Pain Chief Complaint (Provider): Back Pain History Per: Patient History/Exam Limitations: no limitations Onset/Duration Of Symptoms: Days (x1) Current Symptoms Are (Timing): Still Present Additional Complaint(s): 52 year old male presents to the ED for evaluation of left sided lower atrauma tic back pain radiating down his left leg for the past day. He reports a history of back pain but states this is worse than usual. Otherwise denies fever, vomiting, and straining. Past Medical History Reviewed: Historical Data, Nursing Documentation, Vital Signs Vital Signs: Last Vital Signs Temp 99.0 F 07/02/18 21:08 Pulse 98 H 07/02/18 21:08 Resp 16 07/02/18 21:08 BP 133/95 H 07/02/18 21:08 Pulse Ox 97 07/02/18 21:08 Primary Care Provider: Non [facility] Provider, ([facility]) - Medical History PMH: Asthma, Bronchitis, Cardiac Aneurysm Denies: HIV, Chronic Kidney Disease Other PMH: dilated aorta; syncope - Surgical History Surgical History: Hernia Repair - Family History Family History: States: Hypertension (mother) - Social History Current smoker - smoking cessation education provided: No Alcohol: None Drugs: Denies - Immunization History Hx Tetanus Toxoid Vaccination: No - Home Medications Home Medications: Ambulatory Orders Medication Instructions Recorded Midodrine [Proamatine] 2.5 mg PO TID tab 11/22/17 Naproxen 500 mg PO Q12 #20 tab 07/03/18 - Allergies Allergies/Adverse Reactions: Allergies Allergy/AdvReac Type Severity Reaction Status Date / Time No Known Allergies Allergy Verified 07/02/18 21:07 Review of Systems ROS Statement: Except As Marked, All Systems Reviewed And Found Negative Constitutional: Negative for: Fever Gastrointestinal: Negative for: Vomiting Musculoskeletal: Positive for: Back Pain (left lower radiating down left leg) Physical Exam - Reviewed Nursing Documentation Reviewed: Yes Vital Signs Reviewed: Yes - Physical Exam Appears: Positive for: Well, Non-toxic, No Acute Distress Head Exam: Positive for: ATRAUMATIC, NORMAL INSPECTION, NORMOCEPHALIC Skin: Positive for: Normal Color, Warm, Dry. Negative for: Rash Eye Exam: Positive for: EOMI, Normal appearance, PERRL ENT: Positive for: Normal ENT Inspection Neck: Positive for: Normal, Painless ROM, Supple. Negative for: Decreased ROM Cardiovascular/Chest: Positive for: Regular Rate, Rhythm. Negative for: Murmur Respiratory: Positive for: Normal Breath Sounds. Negative for: Decreased Breath Sounds, Wheezing, Respiratory Distress Gastrointestinal/Abdominal: Positive for: Normal Exam, Soft, Other (no saddle anasthesia). Negative for: Tenderness Back: Positive for: Normal Inspection Extremity: Positive for: Normal ROM. Negative for: Tenderness, Pedal Edema, Deformity Neurological/Psych: Positive for: Awake, Alert, Normal Tone, Oriented (x3), Gait (stable), supervisor filtration II-XII. Negative for: Motor/Sensory Deficits - ECG O2 Sat by Pulse Oximetry: 97 (RA) Pulse Ox Interpretation: Normal Medical Decision Making Medical Decision Making: Time: 2231 Impression: back pain, acute on chronic Plan: --LS spine XR --Urine culture --Urinalysis --PE intially deferred because patient standing, saying he is unable to sit secondary to pain. Will give Toradol 30mg IM and reevaluate / perform PE when reporting improved pain. PE performed after meds given and pt with more mobility. exam shows no neurologic deficit. see full PE 2325 X-ray is negative for fracture and dislocation, as read by provider 0000 Patient care endorsed to Dr. Cisneros pending UA and re-evaluation Scribe Attestation: Documented by Gaviota Wynn, acting as a scribe for Pepe Jesus MD. Provider Scribe Attestation: All medical record entries made by the Scribe were at my direction and persona lly dictated by me. I have reviewed the chart and agree that the record accurately reflects my personal performance of the history, physical exam, medical decision making, and the department course for this patient. I have also personally directed, reviewed, and agree with the discharge instructions and disposition. Disposition - Clinical Impression Clinical Impression: Back pain - Patient ED Disposition Is Patient to be Admitted: Transfer of Care - Disposition Disposition: Transfer of Care Disposition Time: 00:00 Condition: IMPROVED Additional Instructions: Take Naproxen twice per day for pain. Follow up with primary medical doctor as needed. Return to the emergency department if symptoms worsen or if new symptoms develop. Prescriptions: Naproxen 500 mg PO Q12 #20 tab Instructions: Upper Back Pain (DC) Forms: [email or web address] (Sammarinese), [facility] ED School/Work Excuse Print Language: [place] Patient Signed Over To: Moni Cisneros (pending UA and re-evaluation )
[2018-07-03 00:13] LABS: URINE BILIRUBIN NEGATIVE (NEGATIVE); URINE BLOOD SMALL (NEGATIVE); URINE CLARITY CLEAR (Clear); URINE COLOR YELLOW (YELLOW); URINE GLUCOSE (UA) NEG (NEGATIVE); URINE LEUKOCYTE ESTERASE NEG Leu/uL (Negative); URINE PROTEIN NEGATIVE (NEGATIVE); URINE UROBILINOGEN 0.2-1.0 mg/dL (0.2-1.0)
--- NOTE | 2018-07-03 00:15 | ED PDOC ---
- ECG O2 Sat by Pulse Oximetry: 97 (RA) Pulse Ox Interpretation: Normal Medical Decision Making Medical Decision Makin Patient care endorsed from Dr. Jesus pending UA and re-evaluation UA reviewed and revealed no clinically significant abnormalities Upon provider evaluation patient is medically stable, and requires no further treatment in the ED at this time. Patient will be discharged. Counseling was provided and all questions were answered regarding diagnosis and need for follow up with PMD. There is agreement to discharge plan. Return if symptoms persist or worsen. Scribe Attestation: Documented by Chong Huang, acting as a scribe for Moni Cisneros MD Provider Scribe Attestation: All medical record entries made by the Scribe were at my direction and p ersonally dictated by me. I have reviewed the chart and agree that the record accurately reflects my personal performance of the history, physical exam, medical decision making, and the department course for this patient. I have also personally directed, reviewed, and agree with the discharge instructions and disposition. Disposition - Clinical Impression Clinical Impression: Back pain - POA Present On Arrival: None - Disposition Disposition: Routine/Home Disposition Time: 01:50 Condition: IMPROVED Additional Instructions: Take Naproxen twice per day for pain. Follow up with primary medical doctor as needed. Return to the emergency department if symptoms worsen or if new symptoms develop. Prescriptions: Naproxen 500 mg PO Q12 #20 tab Instructions: Upper Back Pain (DC) Forms: [employer] (Nepalese), [facility] ED School/Work Excuse Print Language: ALBANIAN
[2018-07-03 00:42] VITALS: BP 146/82; PULSE 87; RESP 18; TEMP 98.6
[2018-07-03 01:52] VITALS: O2SAT 97
--- NOTE | 2018-07-03 11:16 | RAD ---
Date of service: 07/02/2018 PROCEDURE: Radiographs of the Lumbar Spine. HISTORY: lower back pain COMPARISON: No prior. TECHNIQUE: 5 views obtained. FINDINGS: BONES: Normal alignment. No listhesis. No fracture. DISC SPACES: Unremarkable. OTHER FINDINGS: None. IMPRESSION: Unremarkable radiographs of the lumbar spine. Concordant results with the preliminary interpretation rendered by the emergency department physician procedure.
== END 2018-07-03 02:01 | disposition home or self-care (01) ==
LOC: H.ER 20:37
DX: M54.9 Dorsalgia, unspecified (principal)
CPT/HCPCS: 72100; 81003; 87086; 96372; 99283; J1885